=== PATIENT | male | born 1955 | race Caucasian/White ===

== ENCOUNTER 2016-09-29 17:18 | Inpatient (IN) | payer OTHER ==
[~2016-09-29] VITALS: Ht 172.7 cm; Wt 67.1 kg
[~2016-09-29 17:18] MED LIST: Aspirin PO; CARV3.122 PO; CARV6.25 PO; CLOP75TA27 PO; GABA-586 PO; INSU100I17 SQ; INSU100I27 SQ; INSU100V8 SQ; LEVO500T38 PO; METO5TAB55 PO; NICO1PAT2 TP; OXYC5TAB PO; POTA10TA17 PO; POTA10TA31 PO; SERT100T PO; SIMV40TA3 PO
[2016-09-29] MEDS: NITROGLYCERIN SUBLINGUAL 0.4 MG BOTTLE OF 25. SL PRN ×3 (17:26→17:36)
[2016-09-29] MEDS ORDERED: IPRATRPIUM/ALBUTEROL 0.5/2.5MG 3 ML NEBU. NEB ONE (17:30)
[2016-09-29] MEDS ORDERED: MORPHINE SULFATE 4 MG/ML DISP.SYRIN. IV/SQ PRN (17:30)
[2016-09-29] MEDS ORDERED: NITROGLYCERIN PREMIX 250 ML IV ONE ×2 (17:30→17:45)
[2016-09-29 17:43] LABS: BASO # 0.1 x10^3/uL (0.0-0.2); BASO % 1 % (0-3); EOS % 2 % (0-3); HEMOGLOBIN 14.2 g/dL (13.0-17.5); LYMPH # 3.8 x10^3/uL (1.0-4.8); LYMPH % 38 % (24-48); MEAN CORPUSCULAR HEMOGLOBIN 34 pg (25-35); MEAN CORPUSCULAR HGB CONC 33 g/dL (31-37); MEAN CORPUSCULAR VOLUME 102 fL (79-100); MONO % 6 % (0-9); NEUT % 53 % (31-73); PLATELET COUNT 147 x10^3/uL (140-400); RED BLOOD COUNT 4.23 x10^6/uL (4.30-5.70); WHITE BLOOD COUNT 10.1 x10^3/uL (4.0-11.0)
[2016-09-29 17:53] LABS: CALCIUM 8.7 mg/dL (8.5-10.1); CREATININE 1.1 mg/dL (0.7-1.3); GFR 68.5; MAGNESIUM 2.1 mg/dL (1.8-2.4); POTASSIUM 4.7 mmol/L (3.5-5.1)
--- NOTE | 2016-09-29 18:01 | EKG ---
[facility] [address] [place] [address] Test Date: 2016-09-29 Test Time: 17:28:52 Pat Name: NEVIN PATTON Department: Room: Gender: M Sonoscope Operator: : 1955 Requested By: Krysta JOSEPH Order Number: [id number] Reading MD: Elis Aguilera Measurements Intervals [place] Rate: 135 P: -3 MD: 132 QRS: -17 QRSD: 128 T: 97 QT: 278 QTc: 421 Interpretive Statements SINUS TACHYCARDIA LEFTWARD AXIS T ABNORMALITY IN ANTEROLATERAL LEADS INFEROLATERAL LEADS Electronically Signed On 10-02-2016 20:07:21 COTTON PICKER by Elis Aguilera
[2016-09-29 18:05] LABS: PLT ESTIMATE ADEQUATE (ADEQUATE)
--- NOTE | 2016-09-29 18:06 | PHYS DOC ---
Past Medical History Past Medical History: CAD, COPD, Diabetes-Type II, Hypertension, Stroke Additional Past Medical Histor: CHF with ICD Past Surgical History: Coronary Bypass Surgery, Pacemaker Additional Past Surgical Histo: defib, left carotid endarectomy, bilateral arterial bypass Alcohol Use: Sober Drug Use: Amphetamine, Cocaine Adult General Chief Complaint Chief Complaint: CHEST PAIN HPI HPI Patient is a 61 year old male who presents with difficulty breathing and chest tightness that started around 11 AM this morning. Symptoms are severe and constant, worsening through the day. He notes slight cough. Denies f/c, n/c, diaphoresis, orthopnea, leg pain or swelling, hemoptysis. Review of Systems Review of Systems Constitutional: Denies fever or chills [] Eyes: Denies change in visual acuity, redness, or eye pain [] HENT: Denies nasal congestion or sore throat [] Respiratory: Has cough and shortness of breath [] Cardiovascular: No additional information not addressed in HPI [] GI: Denies abdominal pain, nausea, vomiting, bloody stools or diarrhea [] : Denies dysuria or hematuria [] Musculoskeletal: Denies back pain or joint pain [] Integument: Denies rash or skin lesions [] Neurologic: Denies headache, focal weakness or sensory changes [] Endocrine: Denies polyuria or polydipsia [] Current Medications Current Medications Current Medications Medications (Trade) Dose Ordered Sig/Manjula Start Time Stop Time Status Last Admin Dose Admin Albuterol/ Ipratropium 3 ml 3 ml 1X ONCE 09/29/16 17:30 09/29/16 17:34 DC 09/29/16 17:48 3 ML Morphine Sulfate 4 mg PRN Q15MIN PRN 09/29/16 17:30 09/30/16 17:29 09/29/16 17:40 4 MG Nitroglycerin/ Dextrose (Nitroglycerin Drip) 250 ml @ 0 mls/hr 1X ONCE 09/29/16 17:45 09/29/16 17:46 DC 09/29/16 17:56 3 MLS/HR Allergies Allergies Allergies Coded Allergies Type Severity Reaction Last Updated Verified codeine Allergy Intermediate 12/15/14 Yes Physical Exam Physical Exam Constitutional: Well developed, well nourished, moderate distress, non-toxic appearance. [] HENT: Normocephalic, atraumatic, bilateral external ears normal, oropharynx moist, no oral exudates, nose normal. [] Eyes: PERRLA, EOMI. [] Neck: Normal range of motion, no tenderness, supple, no stridor. [] Cardiovascular:Heart rate regular rhythm [] Lungs & Thorax: Tachypnea, bilateral wheezing with prolonged expiratory phase, increased work of breathing. No crackles [] Abdomen: Bowel sounds normal, soft, no tenderness. [] Skin: Warm, dry, no erythema, no rash. [] Back: Normal ROM. [] Extremities: No tenderness, ROM intact, no edema, no palpable cord. [] Neurologic: Alert and oriented X 3, normal motor function, normal sensory function, no focal deficits noted. [] Psychologic: Affect normal, judgement normal, mood normal. [] Current Patient Data Vital Signs Vital Signs Date Time Temp Pulse Resp B/P Pulse Ox O2 Delivery O2 Flow Rate FiO2 09/29/16 17:40 97 NonRebreather Mask 09/29/16 17:36 138 236/131 Lab Values Laboratory Tests Test 09/29/16 17:35 White Blood Count 10.1x10^3/uL (4.0-11.0) Red Blood Count 4.23x10^6/uL (4.30-5.70) L Hemoglobin 14.2g/dL (13.0-17.5) Hematocrit 43.0% (39.0-53.0) Mean Corpuscular Volume 102fL (79-100) H Mean Corpuscular Hemoglobin 34pg (25-35) Mean Corpuscular Hemoglobin Concent 33g/dL (31-37) Red Cell Distribution Width 14.0% (11.5-14.5) Platelet Count 147x10^3/uL (140-400) Neutrophils (%) (Auto) 53% (31-73) Lymphocytes (%) (Auto) 38% (24-48) Monocytes (%) (Auto) 6% (0-9) Eosinophils (%) (Auto) 2% (0-3) Basophils (%) (Auto) 1% (0-3) Neutrophils # (Auto) 5.3x10^3uL (1.8-7.7) Lymphocytes # (Auto) 3.8x10^3/uL (1.0-4.8) Monocytes # (Auto) 0.6x10^3/uL (0.0-1.1) Eosinophils # (Auto) 0.2x10^3/uL (0.0-0.7) Basophils # (Auto) 0.1x10^3/uL (0.0-0.2) Platelet Estimate Adequate (ADEQUATE) Giant Platelets Few Sodium Level 142mmol/L (136-145) Potassium Level 4.7mmol/L (3.5-5.1) Chloride Level 105mmol/L (98-107) Carbon Dioxide Level 26mmol/L (21-32) Anion Gap 11 (6-14) Blood Urea Nitrogen 13mg/dL (8-26) Creatinine 1.1mg/dL (0.7-1.3) Estimated GFR (Cockcroft-Gault) 68.5 Glucose Level 79mg/dL (70-99) Calcium Level 8.7mg/dL (8.5-10.1) Magnesium Level 2.1mg/dL (1.8-2.4) Troponin I Quantitative 0.024ng/mL (0.000-0.055) KB-Eft-W-Type Natriuretic Peptide 75558yn/mL (0-124) H Laboratory Tests 09/29/16 17:35 Laboratory Tests 09/29/16 17:35 EKG EKG EKG as interpreted by me as sinus tachycardia, rate 135, poor quality with wandering baseline, time 1728 EKG as interpreted by me as normal sinus rhythm, rate 97, no ST-T changes, P-R 164, QTc 474, no ectopy Radiology/Procedures Radiology/Procedures Chest x-ray as interpreted by me as bilateral pulmonary edema Course & Med Decision Making Course & Med Decision Making Pertinent Labs and Imaging studies reviewed. (See chart for details) Presentation and workup significant for heart failure exacerbation mixed with COPD exacerbation. He was started on nitro drip and given duoneb and his symptoms have improved with lowering of his SBP. Work of breathing is normal now, still with some bilateral wheezing. Laboratory evaluation remarkable for elevated proBNP. Chest x-ray concerning as above. Will admit to the ICU for further monitoring. Antibiotics ordered for COPD exacerbation after discussing case with Dr. Yu, who agrees to admit. Cardiology consult placed. Celeste Disclaimer Dragon Disclaimer This electronic medical record was generated, in whole or in part, using a voice recognition dictation system. Critical Care Time Critical care time was 45 minutes exclusive of procedures. Departure Departure Impression: Primary Impression: Respiratory failure Additional Impressions: CHF exacerbation COPD exacerbation Disposition: ADMITTED INPATIENT Condition: CRITICAL Referrals: MANNY YU MD (PCP) Problem Qualifiers Primary Impression: Respiratory failure Chronicity: acute Respiratory failure complication: hypoxia Qualified Code : J96.01 - Acute respiratory failure with hypoxia Additional Impressions: CHF exacerbation Congestive heart failure type: unspecified congestive heart failure type Qualified Code: I50.9 - Heart failure, unspecified Krysta JOSEPH MD Sep 29, 2016 18:06
[2016-09-29 18:27] LABS: PROTHROMBIN TIME PATIENT 12.6 SEC (11.7-14.0)
[2016-09-29] MEDS ORDERED: PREDNISONE 20 MG TABLET PO ONE (18:30)
[2016-09-29] MEDS ORDERED: ACETAMINOPHEN 325 MG TABLET. PO PRN (18:45)
[2016-09-29] MEDS ORDERED: LEVOFLOXACIN PER PHARMACY MC PRN (18:45)
[2016-09-29] MEDS ORDERED: MORPHINE SULFATE 4 MG/ML DISP.SYRIN. IV PRN (18:45)
[2016-09-29] MEDS ORDERED: ONDANSETRON PF 4 MG/2 ML VIAL. IV PRN (18:45)
[2016-09-29 19:05] LABS: OBC FLU VALID
[2016-09-29] MEDS ORDERED: IPRATRPIUM/ALBUTEROL 0.5/2.5MG 3 ML NEBU. NEB SCH (20:00)
[2016-09-29 21:30] VITALS: BP 137/74
[2016-09-29] MEDS ORDERED: DEXTROSE 50% 25 GM / 50ML DISP.SYRIN. IV PRN (21:45)
[2016-09-29] MEDS ORDERED: FUROSEMIDE 40 MG/4 ML VIAL IVP ONE (22:00)
[2016-09-29] MEDS ORDERED: OXYCODONE IR 5 MG TABLET. PO PRN (22:00)
[2016-09-29] MEDS: INSULIN DETEMIR 300 UNITS/3 ML INSULN.PEN. SQ SCH (22:00)
[2016-09-29] MEDS: GABAPENTIN 300 MG CAPSULE. PO SCH (22:10)
[2016-09-29] MEDS: METOCLOPRAMIDE 5 MG TABLET PO SCH (22:10)
[2016-09-29] MEDS: SIMVASTATIN 40 MG TABLET. PO SCH (22:10)
[2016-09-29 23:00] VITALS: BP 130/68
--- NOTE | 2016-09-30 00:20 | ACF ---
Admission Forms Criteria COPD Clinical Indications for Admission to Inpatient Care (Place 'X' for any and all applicable criteria): Admission is indicated for ANY ONE of the following (1)(2)(3): [X]I. Acute exacerbation by high-risk comorbidity (e.g., pneumonia, dysrhythmia, heart failure, pleural effusion, pneumothorax) or severe underlying COPD (e.g., steroid dependent) [ ]II. Inpatient admission required rather than observation care (see Chronic Obstructive Pulmonary Disease: Observation Care) because of ANY ONE of the following: [ ]a) New or pre-existing signs or symptoms of COPD (eg, dyspnea or Tachypnea at rest or with minimal activity) that persist despite outpatient and observation care treatment [ ]b) New-onset hypoxemia (room air SaO2 less than 90%, PO2 less than 60 mm Hg (8.0 kPa)) that persists despite outpatient and observation care treatment [ ]c) Worsening of pre-existing hypoxemia (eg, new or increased requirement for supplemental oxygen to maintain oxygenation at baseline level) that persists despite outpatient and observation care treatment, with oxygen treatment needs performable only in acute inpatient setting [ ]d) Hypercarbia (PCO2 greater than 40 mm Hg (5.3 kPa))-induced respiratory acidosis (pH less than 7.35) that persists despite outpatient and observation care treatment [ ]e) Supplemental oxygen or respiratory treatments for over 24 hours that are performable only in acute inpatient setting [ ]f) Chest tube placement with active evacuation (e.g., suction, drainage) (5) [ ]g) Other condition, treatment or monitoring requiring inpatient admission [ ]III. Planned invasive surgical or diagnostic procedures requiring acute- care hospitalization [X]IV. Acute respiratory failure (e.g., uncompensated hypercarbia, severe hypoxemia) [ ]V. Severe comorbid condition (e.g., severe steroid myopathy, acute vertebral fracture) that has acutely worsened pulmonary function [ ]. Confusion state, lethargy, obtundation, stupor or coma Extended stay beyond goal length of stay may be needed for (31)(32): [ ]a ) Respiratory Failure. [ ]b) Severe or persisting hypoxemia or hypercarbia [ ]c) Severe or persistent dyspnea [ ]d) Comorbidities (e.g. chronic heart failure, atrial fibrillation with rapid response, pneumonia) [ ]e) Malnutrition The original [facility] content created by [facility] has been revised. The portions of the content which have been revised are identified through the use of italic text or in bold, and [facility] has neither reviewed nor approved the modified material. All other unmodified content is copyright [facility]. Please see references footnoted in the original [facility] edition 2016 Admission Criteria Met?: Yes JOHN CHIU Sep 30, 2016 00:20
[2016-09-30 03:00] VITALS: BP 125/60
[2016-09-30 05:32] LABS: BASO % 0 % (0-3); EOS % 0 % (0-3); HEMATOCRIT 37.9 % (39.0-53.0); HEMOGLOBIN 12.2 g/dL (13.0-17.5); LYMPH # 0.5 x10^3/uL (1.0-4.8); LYMPH % 7 % (24-48); MEAN CORPUSCULAR HEMOGLOBIN 33 pg (25-35); MEAN CORPUSCULAR HGB CONC 32 g/dL (31-37); MEAN CORPUSCULAR VOLUME 102 fL (79-100); MONO % 1 % (0-9); NEUT % 92 % (31-73); PLATELET COUNT 108 x10^3/uL (140-400); RED BLOOD COUNT 3.71 x10^6/uL (4.30-5.70); RED CELL DISTRIBUTION WIDTH 13.8 % (11.5-14.5)
[2016-09-30 05:52] LABS: CALCIUM 8.9 mg/dL (8.5-10.1); CREATININE 1.3 mg/dL (0.7-1.3); GFR 56.5; MAGNESIUM 1.9 mg/dL (1.8-2.4); POTASSIUM 4.2 mmol/L (3.5-5.1)
--- NOTE | 2016-09-30 06:26 | EKG ---
[facility] [address] [place] [address] Test Date: 2016-09-29 Test Time: 18:16:00 Pat Name: NEVIN PATTON Department: Room: 264 1 Gender: M Welt Maker: : 1955 Requested By: Krysta JOSEPH Order Number: [id number] Reading MD: Elis Aguilera Measurements Intervals [place] Rate: 97 P: 53 NE: 164 QRS: -30 QRSD: 130 T: 116 QT: 370 QTc: 474 Interpretive Statements SINUS RHYTHM LEFT ATRIAL ABNORMALITY ABNORMAL LEFT AXIS DEVIATION NON SPECIFIC INTRAVENTRICULAR BLOCK Electronically Signed On 10-02-2016 20:08:39 TOOLMAKER by Elis Aguilera
[2016-09-30 07:00] VITALS: BP 117/60
[2016-09-30 07:27] LABS: PLT ESTIMATE ADEQUATE (ADEQUATE)
--- NOTE | 2016-09-30 07:44 | RAD ---
EXAM: Chest one view. HISTORY: Dyspnea, chest pain. COMPARISON: 05/20/2016. FINDINGS: A frontal view of the chest is obtained. A left-sided pacemaker has its leads in the right atrium and right ventricle. There are changes of coronary artery bypass grafting. There are mild diffuse interstitial infiltrates consistent with pulmonary edema. Trace pleural effusions are noted. There is no pneumothorax. The heart is mildly enlarged. There appears to be a vascular stent in the left subclavian or left common carotid artery. There is a chronic fracture of the left distal clavicle. IMPRESSION: 1. Mild pulmonary edema. Mild cardiomegaly.
[2016-09-30] MEDS ORDERED: FUROSEMIDE 40 MG/4 ML VIAL IVP ONE (08:00)
[2016-09-30] MEDS: INSULIN ASPART 300 UNITS/3 ML INSULN.PEN SQ SCH ×3 (08:00→17:00)
[2016-09-30] MEDS: IPRATRPIUM/ALBUTEROL 0.5/2.5MG 3 ML NEBU. NEB SCH ×4 (08:04→20:11)
[2016-09-30] MEDS: CLOPIDOGREL BISULFATE 75 MG TABLET PO SCH (08:17)
[2016-09-30] MEDS: SERTRALINE 50 MG TABLET. PO SCH (08:18)
[2016-09-30] MEDS: METOCLOPRAMIDE 5 MG TABLET PO SCH ×3 (08:19→21:03)
[2016-09-30] MEDS: ISOSORBIDE MONONITRATE ER 30 MG TAB.ER.24H PO SCH (08:19)
[2016-09-30] MEDS: ASPIRIN 81 MG TAB.CHEW PO SCH (08:19)
[2016-09-30] MEDS: CARVEDILOL 3.125 MG TABLET PO SCH ×2 (08:19→17:18)
[2016-09-30] MEDS: PANTOPRAZOLE 40 MG TABLET. PO SCH (08:20)
--- NOTE | 2016-09-30 08:24 | PDOC1 ---
SANDRA OSBORNE [employer]EL[employer] 09/30/16 0824: HISTORY AND PHYSICAL Chief Complaint Chief Complaint This 61 year old male has been admitted with a chief complaint of acute on chronic systolic CHF. He reports onset of difficulty getting air in at 11AM yesterday. He took 2 NTG subling through the day and additional Imdur without relief. In the early evening he repeated the NTG without improvement in his symptoms and drove to [facility] ED for evaluation. He did not have chest pain or nausea but was experiencing rapid HR. Upon arrival to the ED his BP was 204/ 129. EKG ST initially with repeat EKG SR without acute changes. His troponin was mildly elevated at 0.024 r/t increased demand cardiovascular. He was given nebulizer treatment and NTG infusion initiated. Prednisone 50mg along with Levaquin 750mg IV given for suspected AECOPD and suspected acute bronchitis. He is not having productive cough and his respiratory symptoms have resolved. He has a h/o flash pulmonary edema in May 2016 that was treated with Lasix 40mg IV daily. After several days his BP dropped to 70s systolic and the Lasix stopped. There has been no reoccurrence until this episode yesterday. His diet includes fast food and pizza and this may have contributed to the flash pulmonary edema. He is admitted to the CVICU. Problem List Problems Medical Problems: (1) CHF exacerbation Status: Acute (2) COPD exacerbation Status: Acute (3) Respiratory failure Status: Acute Past Medical History Cardiovascular: CAD (h/o ME x 2, stent prior to CABG RCA, and stent post CABG post deescending. PTCA stent LC x 2 ), CHF (systolic 20% with AICD ), HTN, ME, Hyperlipidemia, Other (PAD bilateral with h/o stents and revascularization at , h/o SVC L stenosis with stent placement x2 and PTCA, ) Pulmonary: COPD (tobacco ) CENTRAL NERVOUS SYSTEM: Dementia (mild short and electronic equipment maint tech memory affected), Seizure (h/o with hypoglycemia ) Heme/Onc: Anemia NOS Psych: Depression Musculoskeletal: low back pain (chronic intermittent), Osteoarthritis Renal/: Chronic renal insuff (CKD II ) Endocrine: Diabetes (Type II senior living insulin with neuropathy ) Past Surgical History PSH Stent PTCA L SCV x 2 separate occasions, B CEA separate occasions. Past Surgical History: Pacemaker, Appendectomy, CABG Past Family History PFH Mom CAD, CVA, HTN, hyperlipidemia, CHF. Father end stage lung disease from wounds received in [place]. Sister AML, remission. 2 of 3 brothers CAD with sudden x1 oldest brother, CVA, post CABG next to oldest brother. 3rd brother alive and well. Past Social History PSH lives with sister, over 45 year pack h/o tobacco, remote h/o ETOH and illicit drugs. Review of Symptoms Review of Symptoms A 14 point ROS was completed with the following noted as positive: Other systems reviewed and negative. Medications Reviewed and reconciled Allergy Allergies Coded Allergies Type Severity Reaction Last Updated Verified codeine Allergy Intermediate 12/15/14 Yes Physical Exam Physical Exam General appearance - alert, ill appearing, and in no distress Mental Status - alert, oriented to person, place, and time, affect appropriate to mood Head - normal Chest - crackles R base Heart - S1 and S2 normal Abdomen - soft, nontender, nondistended, BS+ Neurological - no acute focal neurological deficit noted Musculoskeletal - L shoulder pain, worse with ROM Extremities - no pedal edema Skin - warm and dry VTE Prophylaxis Ordered VTE Prophylaxis Devices: Yes VTE Pharmacological Prophylaxi: No Assessment Labs Laboratory Tests Test 09/29/16 17:35 09/29/16 18:00 09/29/16 18:30 09/29/16 21:46 White Blood Count 10.1x10^3/uL (4.0-11.0) Red Blood Count 4.23x10^6/uL (4.30-5.70) Hemoglobin 14.2g/dL (13.0-17.5) Hematocrit 43.0% (39.0-53.0) Mean Corpuscular Volume 102fL (79-100) Mean Corpuscular Hemoglobin 34pg (25-35) Mean Corpuscular Hemoglobin Concent 33g/dL (31-37) Red Cell Distribution Width 14.0% (11.5-14.5) Platelet Count 147x10^3/uL (140-400) Neutrophils (%) (Auto) 53% (31-73) Lymphocytes (%) (Auto) 38% (24-48) Monocytes (%) (Auto) 6% (0-9) Eosinophils (%) (Auto) 2% (0-3) Basophils (%) (Auto) 1% (0-3) Neutrophils # (Auto) 5.3x10^3uL (1.8-7.7) Lymphocytes # (Auto) 3.8x10^3/uL (1.0-4.8) Monocytes # (Auto) 0.6x10^3/uL (0.0-1.1) Eosinophils # (Auto) 0.2x10^3/uL (0.0-0.7) Basophils # (Auto) 0.1x10^3/uL (0.0-0.2) Platelet Estimate Adequate (ADEQUATE) Giant Platelets Few Sodium Level 142mmol/L (136-145) Potassium Level 4.7mmol/L (3.5-5.1) Chloride Level 105mmol/L (98-107) Carbon Dioxide Level 26mmol/L (21-32) Anion Gap 11 (6-14) Blood Urea Nitrogen 13mg/dL (8-26) Creatinine 1.1mg/dL (0.7-1.3) Estimated GFR (Cockcroft-Gault) 68.5 Glucose Level 79mg/dL (70-99) Calcium Level 8.7mg/dL (8.5-10.1) Magnesium Level 2.1mg/dL (1.8-2.4) Troponin I Quantitative 0.024ng/mL (0.000-0.055) HF-Jug-H-Type Natriuretic Peptide 07521pa/mL (0-124) Prothrombin Time 12.6SEC (11.7-14.0) Prothromb Time International Ratio 1.0 (0.8-1.1) Influenza Type A Antigen Negative (NEGATIVE) Influenza Type B Antigen Negative (NEGATIVE) Glucose (Fingerstick) 50mg/dL (70-99) Test 09/30/16 05:00 White Blood Count 7.0x10^3/uL (4.0-11.0) Red Blood Count 3.71x10^6/uL (4.30-5.70) Hemoglobin 12.2g/dL (13.0-17.5) Hematocrit 37.9% (39.0-53.0) Mean Corpuscular Volume 102fL (79-100) Mean Corpuscular Hemoglobin 33pg (25-35) Mean Corpuscular Hemoglobin Concent 32g/dL (31-37) Red Cell Distribution Width 13.8% (11.5-14.5) Platelet Count 108x10^3/uL (140-400) Neutrophils (%) (Auto) 92% (31-73) Lymphocytes (%) (Auto) 7% (24-48) Monocytes (%) (Auto) 1% (0-9) Eosinophils (%) (Auto) 0% (0-3) Basophils (%) (Auto) 0% (0-3) Neutrophils # (Auto) 6.5x10^3uL (1.8-7.7) Lymphocytes # (Auto) 0.5x10^3/uL (1.0-4.8) Monocytes # (Auto) 0.1x10^3/uL (0.0-1.1) Eosinophils # (Auto) 0.0x10^3/uL (0.0-0.7) Basophils # (Auto) 0.0x10^3/uL (0.0-0.2) Segmented Neutrophils % 95% (35-66) Lymphocytes % 5% (24-48) Platelet Estimate Adequate (ADEQUATE) Large Platelets Present Sodium Level 141mmol/L (136-145) Potassium Level 4.2mmol/L (3.5-5.1) Chloride Level 103mmol/L (98-107) Carbon Dioxide Level 31mmol/L (21-32) Anion Gap 7 (6-14) Blood Urea Nitrogen 13mg/dL (8-26) Creatinine 1.3mg/dL (0.7-1.3) Estimated GFR (Cockcroft-Gault) 56.5 Glucose Level 54mg/dL (70-99) Calcium Level 8.9mg/dL (8.5-10.1) Magnesium Level 1.9mg/dL (1.8-2.4) Laboratory Tests Test 09/29/16 17:35 09/29/16 18:00 09/29/16 18:30 09/29/16 21:46 White Blood Count 10.1x10^3/uL (4.0-11.0) Red Blood Count 4.23x10^6/uL (4.30-5.70) Hemoglobin 14.2g/dL (13.0-17.5) Hematocrit 43.0% (39.0-53.0) Mean Corpuscular Volume 102fL (79-100) Mean Corpuscular Hemoglobin 34pg (25-35) Mean Corpuscular Hemoglobin Concent 33g/dL (31-37) Red Cell Distribution Width 14.0% (11.5-14.5) Platelet Count 147x10^3/uL (140-400) Neutrophils (%) (Auto) 53% (31-73) Lymphocytes (%) (Auto) 38% (24-48) Monocytes (%) (Auto) 6% (0-9) Eosinophils (%) (Auto) 2% (0-3) Basophils (%) (Auto) 1% (0-3) Neutrophils # (Auto) 5.3x10^3uL (1.8-7.7) Lymphocytes # (Auto) 3.8x10^3/uL (1.0-4.8) Monocytes # (Auto) 0.6x10^3/uL (0.0-1.1) Eosinophils # (Auto) 0.2x10^3/uL (0.0-0.7) Basophils # (Auto) 0.1x10^3/uL (0.0-0.2) Platelet Estimate Adequate (ADEQUATE) Giant Platelets Few Sodium Level 142mmol/L (136-145) Potassium Level 4.7mmol/L (3.5-5.1) Chloride Level 105mmol/L (98-107) Carbon Dioxide Level 26mmol/L (21-32) Anion Gap 11 (6-14) Blood Urea Nitrogen 13mg/dL (8-26) Creatinine 1.1mg/dL (0.7-1.3) Estimated GFR (Cockcroft-Gault) 68.5 Glucose Level 79mg/dL (70-99) Calcium Level 8.7mg/dL (8.5-10.1) Magnesium Level 2.1mg/dL (1.8-2.4) Troponin I Quantitative 0.024ng/mL (0.000-0.055) VI-Bed-M-Type Natriuretic Peptide 34014zt/mL (0-124) Prothrombin Time 12.6SEC (11.7-14.0) Prothromb Time International Ratio 1.0 (0.8-1.1) Influenza Type A Antigen Negative (NEGATIVE) Influenza Type B Antigen Negative (NEGATIVE) Glucose (Fingerstick) 50mg/dL (70-99) Test 09/30/16 05:00 White Blood Count 7.0x10^3/uL (4.0-11.0) Red Blood Count 3.71x10^6/uL (4.30-5.70) Hemoglobin 12.2g/dL (13.0-17.5) Hematocrit 37.9% (39.0-53.0) Mean Corpuscular Volume 102fL (79-100) Mean Corpuscular Hemoglobin 33pg (25-35) Mean Corpuscular Hemoglobin Concent 32g/dL (31-37) Red Cell Distribution Width 13.8% (11.5-14.5) Platelet Count 108x10^3/uL (140-400) Neutrophils (%) (Auto) 92% (31-73) Lymphocytes (%) (Auto) 7% (24-48) Monocytes (%) (Auto) 1% (0-9) Eosinophils (%) (Auto) 0% (0-3) Basophils (%) (Auto) 0% (0-3) Neutrophils # (Auto) 6.5x10^3uL (1.8-7.7) Lymphocytes # (Auto) 0.5x10^3/uL (1.0-4.8) Monocytes # (Auto) 0.1x10^3/uL (0.0-1.1) Eosinophils # (Auto) 0.0x10^3/uL (0.0-0.7) Basophils # (Auto) 0.0x10^3/uL (0.0-0.2) Segmented Neutrophils % 95% (35-66) Lymphocytes % 5% (24-48) Platelet Estimate Adequate (ADEQUATE) Large Platelets Present Sodium Level 141mmol/L (136-145) Potassium Level 4.2mmol/L (3.5-5.1) Chloride Level 103mmol/L (98-107) Carbon Dioxide Level 31mmol/L (21-32) Anion Gap 7 (6-14) Blood Urea Nitrogen 13mg/dL (8-26) Creatinine 1.3mg/dL (0.7-1.3) Estimated GFR (Cockcroft-Gault) 56.5 Glucose Level 54mg/dL (70-99) Calcium Level 8.9mg/dL (8.5-10.1) Magnesium Level 1.9mg/dL (1.8-2.4) Plan Plan IMPRESSION: 1. ICM with acute on chronic systolic CHF EF 20% 2. mild exacerbation COPD 3. DM II with neuropathy, senior living use insulin, hypoglycemia 4. malignant HTN 5. CAD with h/o ME x 2, stent pre and post CABG, additional stent x 2 occasions 6. PAD with h/o stents 7. L SCV stenosis with h/o stent x2 8. CKD II 9. hyperlipidemia 10. h/o seizures with hypoglycemia 11. anemia CD 12. chronic tobacco abuse PLAN: a/c CHF Lasix 40mg IV after admit, repeat this AM 09/30 IO daily wt cardiology consult gentle diuresis, becomes hypotensive with daily dose-may need Lasix 40mg MWF and prn. HTN malignant improved with respiratory failure treatment mild EXCOPD nebulizer treatment Prednisone 50mg x 1 ED monitor, no further steroids ?AB -symptoms not support, DC DM II does not follow ADA diet, change to regular cardiac diet monitor hypoglycemia-h/o seizures in past FSBS/SSI Home insulin L shoulder pain consult Dr. Cameron h/o L SCV stent x2 and PTCA in past, source of pain? DVT/GI prophylaxis SCD/CHERYLE PPI For more details regarding further plans, please refer to the orders. MANNY YU MD 09/30/16 0931: HISTORY AND PHYSICAL Plan Plan The patient was seen and examined by me. Chart reviewed and plan of care formulated. Discussed with, reviewed and agree with SENIOR LOSS CONTROL SPECIALIST's notes, plan of care and orders with modifications as necessary. For more details regarding further plans, please refer to the orders. SANDRA OSBORNE APRN Sep 30, 2016 08:24 MANNY YU MD Sep 30, 2016 09:31
[2016-09-30] MEDS: NICOTINE 14MG PATCH. TD SCH (09:00)
--- NOTE | 2016-09-30 10:18 | PDOC2 ---
CARDIAC CONSULT DATE OF CONSULT Date of Consult DATE: 09/30/16 TIME: 10:07 REASON FOR CONSULT Reason for Consult: CHF exacerbation REFERRING PHYSICIAN Referring Physician: White SOURCE Source: Chart review, Patient HISTORY OF PRESENT ILLNESS HISTORY OF PRESENT ILLNESS This is a pleasant 61 yo male admitted for complains of SOA and chest pain. Reports that he was doing well in the last week till yesterday morning. He felt his SOA increasing which then followed by midsternal chest tightness. No nausea, palpitations. He is known for significant cardiac disease with recent LHC noted with no new coronary obstruction. He has been compliant with his medications but unfortunately he continues to drink significant amounts of soda with caffeine and 1pk/day tobacco. He was diuresed overnight with 2 doses of lasix in which currently his symptoms have improved significantly. lasix therapy has been an intermittent medications for him due to his erratic BP which sometimes become significantly low thus no ACEi/ARB as well. Currently he is CP free and no SOA. PAST MEDICAL HISTORY Past Medical History Cardiovascular: CAD (Last CC 08/13/10 LM subtotally occluded distally, LAD 100 % occluded proximally, LCX 100% occluded proximally, RCA previous stent prox and mid segment which shows 100% occluded in mid area, MARTINEZ graft to LAD patent , SVG first diagonal branch L OM patent, SVG to post descending art previous stent distal part of graft, 30-40% in stent restenosis but excellent flow distally, bilateral CEA ), CHF (ICM Class II-III, EF 10-15% with AICD ), HTN, Hyperlipidemia, Other (L SVC stenosis with PTCA and stent X 2 separate occasions , ) Pulmonary: COPD CENTRAL NERVOUS SYSTEM: Dementia, Periperal neuropathy, Other GI: Diverticulosis (h/o multiple hypoglycemic events ), GERD Heme/Onc: Anemia NOS Psych: Depression (with mood disorder ) Musculoskeletal: Osteoarthritis Renal/: Chronic renal insuff (CKD II ) Endocrine: Diabetes (with neuropathy ) PAST SURGICAL HISTORY Past Surgical History Pacemaker (AICD ), Appendectomy, CABG,, Other (Stent RCA prior to CABG, Stent post descending post CABG, PTCA stent L SCV x2 (separate occasions), CEA x 2 ( separate occasions) with bruit present 08/23/10, ) FAMILY HISTORY Family History Mother: CAD, DM, CVA, HTN, Hyperlipidemia, CHF Dad: ES lung disease from wounds inflicted during [place] War 08/08 sister: leukemia, allergies. 08/08 brother x 2 with CAD, oldest brother massive CO, . Next to the oldest brother CAD CVA during post op from CABG SOCIAL HISTORY Social History Smoke: 1 packs per day ALCOHOL: none Drugs: None Lives: with Family Domestic Violence: Neg CURRENT MEDICATIONS CURRENT MEDICATIONS Current Medications Medications (Trade) Dose Ordered Sig/Manjula Route PRN Reason Start Time Stop Time Status Last Admin Dose Admin Nitroglycerin/ Dextrose (Nitroglycerin Drip) 250 ml @ 3 mls/hr 1X ONCE IV 09/29/16 17:30 09/29/16 18:01 DC 09/29/16 17:41 Morphine Sulfate 4 mg PRN Q15MIN PRN IV/SQ PAIN GREATER THAN 3/10 09/29/16 17:30 09/30/16 17:29 09/29/16 17:40 Albuterol/ Ipratropium 3 ml 3 ml 1X ONCE NEB 09/29/16 17:30 09/29/16 17:34 DC 09/29/16 17:48 Nitroglycerin/ Dextrose (Nitroglycerin Drip) 250 ml @ 0 mls/hr 1X ONCE IV 09/29/16 17:45 09/29/16 17:46 DC 09/29/16 17:56 Nitroglycerin (Nitrostat) 0.4 mg PRN Q5MIN PRN SL CHEST PAIN 09/29/16 18:00 09/29/16 17:36 Prednisone (Prednisone) 60 mg 1X ONCE PO 09/29/16 18:30 09/29/16 18:31 DC 09/29/16 18:29 Albuterol/ Ipratropium 3 ml 3 ml RTQID NEB 09/29/16 20:00 09/30/16 08:00 DC 09/29/16 21:43 Levofloxacin/ Dextrose (LEVAQUIN 750mg PREMIX) 150 ml @ 100 mls/hr Q24H IV 09/29/16 19:00 09/30/16 09:48 DC 09/29/16 19:56 Furosemide (Lasix) 40 mg 1X ONCE IVP 09/29/16 22:00 09/29/16 22:01 DC 09/29/16 22:10 Pantoprazole Sodium (Protonix) 40 mg DAILYAC PO 09/30/16 07:30 09/30/16 08:20 Dextrose 12.5 gm PRN Q15MIN PRN IV SEE COMMENTS 09/29/16 21:45 09/30/16 06:14 Carvedilol (Coreg) 6.25 mg BIDWMEALS PO 09/30/16 08:00 09/30/16 08:19 Clopidogrel Bisulfate (Plavix) 75 mg DAILY PO 09/30/16 09:00 09/30/16 08:17 Gabapentin (Neurontin) 300 mg QHS PO 09/29/16 22:15 09/29/16 22:10 Metoclopramide HCl (Reglan) 5 mg TID PO 09/29/16 22:15 09/30/16 08:19 Simvastatin (Zocor) 40 mg HS PO 09/29/16 22:15 09/29/16 22:10 Sertraline HCl (Zoloft) 100 mg DAILY PO ANTI-DEPRESSANT 09/30/16 09:00 09/30/16 08:18 Aspirin (Children'S Aspirin) 81 mg DAILYWBKFT PO 09/30/16 08:00 09/30/16 08:19 Isosorbide Mononitrate (Imdur) 30 mg DAILY PO 09/30/16 09:00 09/30/16 08:19 Albuterol/ Ipratropium (Duoneb) 3 ml RTQID NEB 09/30/16 08:00 09/30/16 08:04 Furosemide (Lasix) 40 mg 1X ONCE IVP 09/30/16 08:00 09/30/16 08:01 DC 09/30/16 08:24 ALLERGIES ALLERGIES: Coded Allergies: codeine (Verified Allergy, Intermediate, 12/15/14) migraines ROS Review of System 14 point ROS evaluated with pertinent positives noted per HPI PHYSICAL EXAM General: Alert, Oriented X3, Cooperative, No acute distress HEENT: Atraumatic, Mucous membr. moist/pink Lungs: Other (bibasilar crackles) Heart: Regular rate (SR, no significant rhtyhm ectopies), Normal S1, Normal S2 , Other (3/6 systolic murmur to LLS border) Extremities: No cyanosis, Other (trace LE edema) Skin: No breakdown Neuro: Normal speech, Sensation intact Psych/Mental Status: Mental status NL, Mood NL MUSCULOSKELETAL: Osteoarthritic changes both hands VITALS VITALS Vital Signs Date Time Temp Pulse Resp B/P Pulse Ox O2 Delivery O2 Flow Rate FiO2 09/30/16 08:19 68 117/60 09/30/16 08:05 Nasal Cannula 3.5 09/30/16 03:00 98.3 16 96 98.3 LABS Lab: Laboratory Tests Test 09/29/16 17:35 09/29/16 18:00 09/29/16 18:30 09/29/16 21:46 White Blood Count 10.1x10^3/uL (4.0-11.0) Red Blood Count 4.23x10^6/uL (4.30-5.70) Hemoglobin 14.2g/dL (13.0-17.5) Hematocrit 43.0% (39.0-53.0) Mean Corpuscular Volume 102fL (79-100) Mean Corpuscular Hemoglobin 34pg (25-35) Mean Corpuscular Hemoglobin Concent 33g/dL (31-37) Red Cell Distribution Width 14.0% (11.5-14.5) Platelet Count 147x10^3/uL (140-400) Neutrophils (%) (Auto) 53% (31-73) Lymphocytes (%) (Auto) 38% (24-48) Monocytes (%) (Auto) 6% (0-9) Eosinophils (%) (Auto) 2% (0-3) Basophils (%) (Auto) 1% (0-3) Neutrophils # (Auto) 5.3x10^3uL (1.8-7.7) Lymphocytes # (Auto) 3.8x10^3/uL (1.0-4.8) Monocytes # (Auto) 0.6x10^3/uL (0.0-1.1) Eosinophils # (Auto) 0.2x10^3/uL (0.0-0.7) Basophils # (Auto) 0.1x10^3/uL (0.0-0.2) Platelet Estimate Adequate (ADEQUATE) Giant Platelets Few Sodium Level 142mmol/L (136-145) Potassium Level 4.7mmol/L (3.5-5.1) Chloride Level 105mmol/L (98-107) Carbon Dioxide Level 26mmol/L (21-32) Anion Gap 11 (6-14) Blood Urea Nitrogen 13mg/dL (8-26) Creatinine 1.1mg/dL (0.7-1.3) Estimated GFR (Cockcroft-Gault) 68.5 Glucose Level 79mg/dL (70-99) Calcium Level 8.7mg/dL (8.5-10.1) Magnesium Level 2.1mg/dL (1.8-2.4) Troponin I Quantitative 0.024ng/mL (0.000-0.055) DZ-Hgr-G-Type Natriuretic Peptide 23689vj/mL (0-124) Prothrombin Time 12.6SEC (11.7-14.0) Prothromb Time International Ratio 1.0 (0.8-1.1) Influenza Type A Antigen Negative (NEGATIVE) Influenza Type B Antigen Negative (NEGATIVE) Glucose (Fingerstick) 50mg/dL (70-99) Test 09/30/16 05:00 09/30/16 08:16 White Blood Count 7.0x10^3/uL (4.0-11.0) Red Blood Count 3.71x10^6/uL (4.30-5.70) Hemoglobin 12.2g/dL (13.0-17.5) Hematocrit 37.9% (39.0-53.0) Mean Corpuscular Volume 102fL (79-100) Mean Corpuscular Hemoglobin 33pg (25-35) Mean Corpuscular Hemoglobin Concent 32g/dL (31-37) Red Cell Distribution Width 13.8% (11.5-14.5) Platelet Count 108x10^3/uL (140-400) Neutrophils (%) (Auto) 92% (31-73) Lymphocytes (%) (Auto) 7% (24-48) Monocytes (%) (Auto) 1% (0-9) Eosinophils (%) (Auto) 0% (0-3) Basophils (%) (Auto) 0% (0-3) Neutrophils # (Auto) 6.5x10^3uL (1.8-7.7) Lymphocytes # (Auto) 0.5x10^3/uL (1.0-4.8) Monocytes # (Auto) 0.1x10^3/uL (0.0-1.1) Eosinophils # (Auto) 0.0x10^3/uL (0.0-0.7) Basophils # (Auto) 0.0x10^3/uL (0.0-0.2) Segmented Neutrophils % 95% (35-66) Lymphocytes % 5% (24-48) Platelet Estimate Adequate (ADEQUATE) Large Platelets Present Sodium Level 141mmol/L (136-145) Potassium Level 4.2mmol/L (3.5-5.1) Chloride Level 103mmol/L (98-107) Carbon Dioxide Level 31mmol/L (21-32) Anion Gap 7 (6-14) Blood Urea Nitrogen 13mg/dL (8-26) Creatinine 1.3mg/dL (0.7-1.3) Estimated GFR (Cockcroft-Gault) 56.5 Glucose Level 54mg/dL (70-99) Calcium Level 8.9mg/dL (8.5-10.1) Magnesium Level 1.9mg/dL (1.8-2.4) Glucose (Fingerstick) 98mg/dL (70-99) ECHOCARDIOGRAM ECHOCARDIOGRAM <Conclusion> The Left Ventricle is borderline dilated. Left ventricle systolic function is severely impaired. The Ejection Fraction is less than 20%. There is global hypokinesis of the left ventricle. There is a device lead in the right ventricle. There is no significant aortic valvular stenosis. Doppler and Color Flow revealed no significant aortic regurgitation. Doppler and Color Flow revealed mild mitral regurgitation. Doppler and Color Flow revealed mild tricuspid regurgitation. The PA pressure was estimated at 33 mmHg. DATE: 05/19/16 1505 HEART CATH HEART CATH Findings. Patent saphenous vein graft to the diagonal and obtuse marginal system. Collateral flow to the right coronary artery. Patent MARTINEZ graft to the LAD. 25% stenosis of the previously placed stent in the proximal left subclavian artery. <Conclusion> Continue patency of the patient's 2 remaining grafts as above. DATE: 05/22/16 1234 ASSESSMENT/PLAN ASSESSMENT/PLAN 1. Acute on chronic systolic CHF: suspect induced by uncontrolled HTN, oral hydration overload and likely hypoglycemic episodes. 2. CAD: CABG and stent in the past. Recent LHC with patency to grafts/stent 3. ICM: EF recent 20%. With [employer] AICD 4. Malignant HTN: not on ACEi/ARB likely from prior hypotensive episodes. 5. DM1 6. HLP 7. Peripheral vascular disease: stable 8. Continued Tobaccoism Recommendations 1. Continue with diuretic therapy, Will convert to po lasix tomorrow. 2. Would recommend routine 20 mg po lasix daily when discharge. Advise daily weight that would further fluid overload monitoring and determine need for extra diuretic therapy 3. Daily BP monitoring, avoid tight BG control. 4. Interrogate device and note optivol. 5. Continue with secondary prevention 6. Home health specializing on CHF would be an option. 7. Will decrease coreg for now, continue with DAPT. 8. Encourage to decrease soda consumption, not quite ready to give up tobacco. 9. Caution with morphine use. 10. BMP and Mg in am. Problems: KARYN GARCIA APRN Sep 30, 2016 10:18
[2016-09-30 11:00] VITALS: BP 94/47
[2016-09-30 15:00] VITALS: BP 104/53
[2016-09-30] MEDS ORDERED: MORPHINE SULFATE 4 MG/ML DISP.SYRIN. IV PRN (18:30)
[2016-09-30] MEDS ORDERED: hydrALAZINE 20 MG/ML VIAL. IVP PRN (18:30)
[2016-09-30 19:33] VITALS: BP 112/54
[2016-09-30] MEDS: GABAPENTIN 300 MG CAPSULE. PO SCH (21:03)
[2016-09-30] MEDS: SIMVASTATIN 40 MG TABLET. PO SCH (21:03)
[2016-09-30] MEDS: INSULIN DETEMIR 300 UNITS/3 ML INSULN.PEN. SQ SCH (21:06)
[2016-09-30 22:36] VITALS: BP 101/47
[2016-10-01 03:10] VITALS: BP 142/76
[2016-10-01 06:15] LABS: BASO % 1 % (0-3); EOS % 0 % (0-3); HEMATOCRIT 36.8 % (39.0-53.0); HEMOGLOBIN 12.1 g/dL (13.0-17.5); LYMPH # 1.9 x10^3/uL (1.0-4.8); LYMPH % 32 % (24-48); MEAN CORPUSCULAR HEMOGLOBIN 33 pg (25-35); MEAN CORPUSCULAR HGB CONC 33 g/dL (31-37); MEAN CORPUSCULAR VOLUME 99 fL (79-100); MONO % 8 % (0-9); NEUT % 60 % (31-73); PLATELET COUNT 105 x10^3/uL (140-400); RED CELL DISTRIBUTION WIDTH 13.7 % (11.5-14.5); WHITE BLOOD COUNT 6.1 x10^3/uL (4.0-11.0)
[2016-10-01 06:21] LABS: ALBUMIN 2.8 g/dL (3.4-5.0); ALBUMIN/GLOBULIN RATIO 0.7 (1.0-1.7); CALCIUM 8.7 mg/dL (8.5-10.1); CREATININE 1.3 mg/dL (0.7-1.3); GFR 56.5; MAGNESIUM 1.9 mg/dL (1.8-2.4); POTASSIUM 3.9 mmol/L (3.5-5.1); TOTAL BILIRUBIN 0.5 mg/dL (0.2-1.0); TOTAL PROTEIN 6.8 g/dL (6.4-8.2)
[2016-10-01] MEDS: IPRATRPIUM/ALBUTEROL 0.5/2.5MG 3 ML NEBU. NEB SCH ×2 (07:24→11:17)
--- NOTE | 2016-10-01 07:25 | PDOC3 ---
IM DISCHARGE & PROGRESS NOTES Date of Admission Date of Admission Date of Admission: Sep 29, 2016 at 17:45 Date of Discharge Date of Discharge 10/01/16 Primary Diagnosis Primary Diagnosis 1. ICM with acute on chronic systolic CHF EF 20% 2. mild exacerbation COPD 3. DM II with neuropathy, prison use insulin, hypoglycemia POA followed by steroid induced hyperglycemia 4. malignant HTN 5. CAD with h/o CO x 2, stent pre and post CABG, additional stent x 2 occasions 6. PAD with h/o stents 7. L SCV stenosis with h/o stent x2 8. CKD II 9. hyperlipidemia 10. h/o seizures with hypoglycemia 11. anemia CD 12. chronic tobacco abuse Consults Consults Rober Bethea MD Procedures Procedures None Labs Labs Laboratory Tests Test 09/29/16 17:35 09/29/16 18:00 09/29/16 18:30 09/29/16 21:46 White Blood Count 10.1x10^3/uL (4.0-11.0) Red Blood Count 4.23x10^6/uL (4.30-5.70) Hemoglobin 14.2g/dL (13.0-17.5) Hematocrit 43.0% (39.0-53.0) Mean Corpuscular Volume 102fL (79-100) Mean Corpuscular Hemoglobin 34pg (25-35) Mean Corpuscular Hemoglobin Concent 33g/dL (31-37) Red Cell Distribution Width 14.0% (11.5-14.5) Platelet Count 147x10^3/uL (140-400) Neutrophils (%) (Auto) 53% (31-73) Lymphocytes (%) (Auto) 38% (24-48) Monocytes (%) (Auto) 6% (0-9) Eosinophils (%) (Auto) 2% (0-3) Basophils (%) (Auto) 1% (0-3) Neutrophils # (Auto) 5.3x10^3uL (1.8-7.7) Lymphocytes # (Auto) 3.8x10^3/uL (1.0-4.8) Monocytes # (Auto) 0.6x10^3/uL (0.0-1.1) Eosinophils # (Auto) 0.2x10^3/uL (0.0-0.7) Basophils # (Auto) 0.1x10^3/uL (0.0-0.2) Platelet Estimate Adequate (ADEQUATE) Giant Platelets Few Sodium Level 142mmol/L (136-145) Potassium Level 4.7mmol/L (3.5-5.1) Chloride Level 105mmol/L (98-107) Carbon Dioxide Level 26mmol/L (21-32) Anion Gap 11 (6-14) Blood Urea Nitrogen 13mg/dL (8-26) Creatinine 1.1mg/dL (0.7-1.3) Estimated GFR (Cockcroft-Gault) 68.5 Glucose Level 79mg/dL (70-99) Calcium Level 8.7mg/dL (8.5-10.1) Magnesium Level 2.1mg/dL (1.8-2.4) Troponin I Quantitative 0.024ng/mL (0.000-0.055) VH-Fbd-A-Type Natriuretic Peptide 99954if/mL (0-124) Prothrombin Time 12.6SEC (11.7-14.0) Prothromb Time International Ratio 1.0 (0.8-1.1) Influenza Type A Antigen Negative (NEGATIVE) Influenza Type B Antigen Negative (NEGATIVE) Glucose (Fingerstick) 50mg/dL (70-99) Test 09/30/16 05:00 09/30/16 08:16 09/30/16 12:00 09/30/16 17:07 White Blood Count 7.0x10^3/uL (4.0-11.0) Red Blood Count 3.71x10^6/uL (4.30-5.70) Hemoglobin 12.2g/dL (13.0-17.5) Hematocrit 37.9% (39.0-53.0) Mean Corpuscular Volume 102fL (79-100) Mean Corpuscular Hemoglobin 33pg (25-35) Mean Corpuscular Hemoglobin Concent 32g/dL (31-37) Red Cell Distribution Width 13.8% (11.5-14.5) Platelet Count 108x10^3/uL (140-400) Neutrophils (%) (Auto) 92% (31-73) Lymphocytes (%) (Auto) 7% (24-48) Monocytes (%) (Auto) 1% (0-9) Eosinophils (%) (Auto) 0% (0-3) Basophils (%) (Auto) 0% (0-3) Neutrophils # (Auto) 6.5x10^3uL (1.8-7.7) Lymphocytes # (Auto) 0.5x10^3/uL (1.0-4.8) Monocytes # (Auto) 0.1x10^3/uL (0.0-1.1) Eosinophils # (Auto) 0.0x10^3/uL (0.0-0.7) Basophils # (Auto) 0.0x10^3/uL (0.0-0.2) Segmented Neutrophils % 95% (35-66) Lymphocytes % 5% (24-48) Platelet Estimate Adequate (ADEQUATE) Large Platelets Present Sodium Level 141mmol/L (136-145) Potassium Level 4.2mmol/L (3.5-5.1) Chloride Level 103mmol/L (98-107) Carbon Dioxide Level 31mmol/L (21-32) Anion Gap 7 (6-14) Blood Urea Nitrogen 13mg/dL (8-26) Creatinine 1.3mg/dL (0.7-1.3) Estimated GFR (Cockcroft-Gault) 56.5 Glucose Level 54mg/dL (70-99) Calcium Level 8.9mg/dL (8.5-10.1) Magnesium Level 1.9mg/dL (1.8-2.4) Glucose (Fingerstick) 98mg/dL (70-99) 103mg/dL (70-99) 315mg/dL (70-99) Test 09/30/16 20:27 10/01/16 05:00 Glucose (Fingerstick) 309mg/dL (70-99) White Blood Count 6.1x10^3/uL (4.0-11.0) Red Blood Count 3.70x10^6/uL (4.30-5.70) Hemoglobin 12.1g/dL (13.0-17.5) Hematocrit 36.8% (39.0-53.0) Mean Corpuscular Volume 99fL (79-100) Mean Corpuscular Hemoglobin 33pg (25-35) Mean Corpuscular Hemoglobin Concent 33g/dL (31-37) Red Cell Distribution Width 13.7% (11.5-14.5) Platelet Count 105x10^3/uL (140-400) Neutrophils (%) (Auto) 60% (31-73) Lymphocytes (%) (Auto) 32% (24-48) Monocytes (%) (Auto) 8% (0-9) Eosinophils (%) (Auto) 0% (0-3) Basophils (%) (Auto) 1% (0-3) Neutrophils # (Auto) 3.6x10^3uL (1.8-7.7) Lymphocytes # (Auto) 1.9x10^3/uL (1.0-4.8) Monocytes # (Auto) 0.5x10^3/uL (0.0-1.1) Eosinophils # (Auto) 0.0x10^3/uL (0.0-0.7) Basophils # (Auto) 0.0x10^3/uL (0.0-0.2) Sodium Level 141mmol/L (136-145) Potassium Level 3.9mmol/L (3.5-5.1) Chloride Level 102mmol/L (98-107) Carbon Dioxide Level 34mmol/L (21-32) Anion Gap 5 (6-14) Blood Urea Nitrogen 20mg/dL (8-26) Creatinine 1.3mg/dL (0.7-1.3) Estimated GFR (Cockcroft-Gault) 56.5 BUN/Creatinine Ratio 15 (6-20) Glucose Level 237mg/dL (70-99) Calcium Level 8.7mg/dL (8.5-10.1) Magnesium Level 1.9mg/dL (1.8-2.4) Total Bilirubin 0.5mg/dL (0.2-1.0) Aspartate Amino Transf (AST/SGOT) 19U/L (15-37) Alanine Aminotransferase (ALT/SGPT) 16U/L (16-63) Alkaline Phosphatase 71U/L (46-116) Total Protein 6.8g/dL (6.4-8.2) Albumin 2.8g/dL (3.4-5.0) Albumin/Globulin Ratio 0.7 (1.0-1.7) Medications Medications Medications reviewed and reconciled for discharge. Brief hospital course Brief hospital course This 61 year old male who presented with acute on chronic systolic CHF was admitted. The following is a summary of his treatment a/c CHF Lasix 40mg IV after admit, repeat this AM 09/30 IO daily wt Admit 156 10/01 148 cardiology consult gentle diuresis, becomes hypotensive with daily dose-may need Lasix 20mg MWF and prn. HTN malignant improved with respiratory failure treatment mild EXCOPD nebulizer treatment Prednisone 50mg x 1 ED monitor, no further steroids ?AB -symptoms not support, DC levaquin DM II does not follow ADA diet, change to regular cardiac diet monitor hypoglycemia-h/o seizures in past FSBS/SSI Home insulin steroid induced hyperglycemia BS 103-315 L shoulder pain consult Dr. Cameron h/o L SCV stent x2 and PTCA in past, source of pain? 25% restenosis per cardiac note f/u OP Dr. Cameron DVT/GI prophylaxis SCD/CHERYLE PPI For more details regarding the past history, family history, social history, surgical history and other details, please refer to History and Physical. His CXR is pending, if pulmonary edema clear, will plan to DC home with Lasix 20mg MWF. Please see DC orders. F/U Dr. Lemons on Monday. Subjective breathing better. Objective no distress Vitals Vital Signs Date Time Temp Pulse Resp B/P Pulse Ox O2 Delivery O2 Flow Rate FiO2 10/01/16 03:10 98.1 77 16 142/76 97 Room Air 98.1 09/30/16 19:36 4.0 Physical Exam General appearance - alert,chronically ill appearing, and in no distress Mental Status - alert, oriented to person, place, and time, affect appropriate to mood Head - normal Chest - clear to auscultation, no wheezes, rales or rhonchi, symmetric air entry Heart - S1 and S2 normal Abdomen - soft, nontender, nondistended, no masses or organomegaly Neurological -no acute focal neurological deficit noted Musculoskeletal - no muscular tenderness noted Extremities - no pedal edema Skin - warm and dry Medications Medications reviewed. Allergy Allergies Coded Allergies Type Severity Reaction Last Updated Verified codeine Allergy Intermediate 12/15/14 Yes Follow up Monday Disposition: Home Comments Discharge Management - 35 minutes. For other details please refer to discharge instructions SANDRA OSBORNE APRN Oct 01, 2016 07:25
[2016-10-01 07:26] VITALS: BP 130/76
--- NOTE | 2016-10-01 07:27 | DISCH ---
DISCHARGE INSTRUCTIONS Condition on Discharge Condition on Discharge: Stable Activity After Discharge Activity Instructions for Disc: Activity as tolerated Diet after Discharge Diet after Discharge: Cardiac Checks after Discharge Checks after discharge: Check blood sugar, ac/hs, Weigh Yourself Daily Contacting the [facility] after DC Call your doctor for: Concerns you may have Follow-Up Follow up with: Dr. Lemons on Monday Follow Up With: Dr. Bethea per his instructions/ per his instructions SANDRA OSBORNE APRN Oct 01, 2016 07:27
[2016-10-01] MEDS ORDERED: FURO-69 PO (07:28)
[2016-10-01] MEDS ORDERED: CARVEDILOL 3.125 MG TABLET PO SCH (08:00)
--- NOTE | 2016-10-01 08:07 | RAD ---
Portable chest, 10/01/2016: History: Congestive heart failure Comparison is made to a study from 09/29/2016. A left-sided transvenous pacemaker remains in place. There has been a previous median sternotomy. A vascular stent is projected over the upper mediastinum on the left. The heart is mildly enlarged. There are prominent interstitial opacities in the lungs, although improved since the previous study. The underlying pulmonary vascularity is better defined. No pulmonary consolidation is seen. There is no evidence of pleural fluid. IMPRESSION: Improving interstitial pulmonary edema due to congestive heart failure.
[2016-10-01] MEDS: METOCLOPRAMIDE 5 MG TABLET PO SCH (08:21)
[2016-10-01] MEDS: CLOPIDOGREL BISULFATE 75 MG TABLET PO SCH (08:21)
[2016-10-01] MEDS: PANTOPRAZOLE 40 MG TABLET. PO SCH (08:22)
[2016-10-01] MEDS: ISOSORBIDE MONONITRATE ER 30 MG TAB.ER.24H PO SCH (08:22)
[2016-10-01] MEDS: SERTRALINE 50 MG TABLET. PO SCH (08:22)
[2016-10-01] MEDS: ASPIRIN 81 MG TAB.CHEW PO SCH (08:22)
[2016-10-01] MEDS: NICOTINE 14MG PATCH. TD SCH (08:23)
[2016-10-01] MEDS: INSULIN ASPART 300 UNITS/3 ML INSULN.PEN SQ SCH ×2 (08:27→11:54)
[2016-10-01] MEDS ORDERED: FUROSEMIDE 40 MG TABLET PO SCH (09:00)
[2016-10-01 10:23] VITALS: BP 119/74
--- NOTE | 2016-10-01 12:19 | PDOC ---
PROGRESS NOTES Subjective Subjective He had no new complaints. Objective Objective Vital Signs Date Time Temp Pulse Resp B/P Pulse Ox O2 Delivery O2 Flow Rate FiO2 10/01/16 11:18 Room Air 10/01/16 10:23 97.8 68 18 119/74 98 97.8 09/30/16 19:36 4.0 Intake and Output 10/01/16 07:00 Intake Total 560 ml Output Total 1200 ml Balance -640 ml Intake Oral 560 ml Output Urine Total 1200 ml Physical Exam Physical Exam He is supine in bed and had pain free ROM of his shoulders. Assessment Assessment Problems Medical Problems: (1) CHF exacerbation Status: Acute (2) COPD exacerbation Status: Acute (3) Respiratory failure Status: Acute Plan Plan of Care I have again reviewed with him home exercises and to consider trigger point injections to infraspinatus muscles on out patient basis if his shoulder area pain persists. Comment Review of Relevant I have reviewed the following items mellissa (where applicable) has been applied. Labs Laboratory Tests Test 09/29/16 17:35 09/29/16 18:00 09/29/16 18:30 09/29/16 21:46 White Blood Count 10.1x10^3/uL (4.0-11.0) Red Blood Count 4.23x10^6/uL (4.30-5.70) Hemoglobin 14.2g/dL (13.0-17.5) Hematocrit 43.0% (39.0-53.0) Mean Corpuscular Volume 102fL (79-100) Mean Corpuscular Hemoglobin 34pg (25-35) Mean Corpuscular Hemoglobin Concent 33g/dL (31-37) Red Cell Distribution Width 14.0% (11.5-14.5) Platelet Count 147x10^3/uL (140-400) Neutrophils (%) (Auto) 53% (31-73) Lymphocytes (%) (Auto) 38% (24-48) Monocytes (%) (Auto) 6% (0-9) Eosinophils (%) (Auto) 2% (0-3) Basophils (%) (Auto) 1% (0-3) Neutrophils # (Auto) 5.3x10^3uL (1.8-7.7) Lymphocytes # (Auto) 3.8x10^3/uL (1.0-4.8) Monocytes # (Auto) 0.6x10^3/uL (0.0-1.1) Eosinophils # (Auto) 0.2x10^3/uL (0.0-0.7) Basophils # (Auto) 0.1x10^3/uL (0.0-0.2) Platelet Estimate Adequate (ADEQUATE) Giant Platelets Few Sodium Level 142mmol/L (136-145) Potassium Level 4.7mmol/L (3.5-5.1) Chloride Level 105mmol/L (98-107) Carbon Dioxide Level 26mmol/L (21-32) Anion Gap 11 (6-14) Blood Urea Nitrogen 13mg/dL (8-26) Creatinine 1.1mg/dL (0.7-1.3) Estimated GFR (Cockcroft-Gault) 68.5 Glucose Level 79mg/dL (70-99) Calcium Level 8.7mg/dL (8.5-10.1) Magnesium Level 2.1mg/dL (1.8-2.4) Troponin I Quantitative 0.024ng/mL (0.000-0.055) UV-Nyj-R-Type Natriuretic Peptide 15612ul/mL (0-124) Prothrombin Time 12.6SEC (11.7-14.0) Prothromb Time International Ratio 1.0 (0.8-1.1) Influenza Type A Antigen Negative (NEGATIVE) Influenza Type B Antigen Negative (NEGATIVE) Glucose (Fingerstick) 50mg/dL (70-99) Test 09/30/16 05:00 09/30/16 08:16 09/30/16 12:00 09/30/16 17:07 White Blood Count 7.0x10^3/uL (4.0-11.0) Red Blood Count 3.71x10^6/uL (4.30-5.70) Hemoglobin 12.2g/dL (13.0-17.5) Hematocrit 37.9% (39.0-53.0) Mean Corpuscular Volume 102fL (79-100) Mean Corpuscular Hemoglobin 33pg (25-35) Mean Corpuscular Hemoglobin Concent 32g/dL (31-37) Red Cell Distribution Width 13.8% (11.5-14.5) Platelet Count 108x10^3/uL (140-400) Neutrophils (%) (Auto) 92% (31-73) Lymphocytes (%) (Auto) 7% (24-48) Monocytes (%) (Auto) 1% (0-9) Eosinophils (%) (Auto) 0% (0-3) Basophils (%) (Auto) 0% (0-3) Neutrophils # (Auto) 6.5x10^3uL (1.8-7.7) Lymphocytes # (Auto) 0.5x10^3/uL (1.0-4.8) Monocytes # (Auto) 0.1x10^3/uL (0.0-1.1) Eosinophils # (Auto) 0.0x10^3/uL (0.0-0.7) Basophils # (Auto) 0.0x10^3/uL (0.0-0.2) Segmented Neutrophils % 95% (35-66) Lymphocytes % 5% (24-48) Platelet Estimate Adequate (ADEQUATE) Large Platelets Present Sodium Level 141mmol/L (136-145) Potassium Level 4.2mmol/L (3.5-5.1) Chloride Level 103mmol/L (98-107) Carbon Dioxide Level 31mmol/L (21-32) Anion Gap 7 (6-14) Blood Urea Nitrogen 13mg/dL (8-26) Creatinine 1.3mg/dL (0.7-1.3) Estimated GFR (Cockcroft-Gault) 56.5 Glucose Level 54mg/dL (70-99) Calcium Level 8.9mg/dL (8.5-10.1) Magnesium Level 1.9mg/dL (1.8-2.4) Glucose (Fingerstick) 98mg/dL (70-99) 103mg/dL (70-99) 315mg/dL (70-99) Test 09/30/16 20:27 10/01/16 05:00 10/01/16 08:03 10/01/16 11:12 Glucose (Fingerstick) 309mg/dL (70-99) 209mg/dL (70-99) 170mg/dL (70-99) White Blood Count 6.1x10^3/uL (4.0-11.0) Red Blood Count 3.70x10^6/uL (4.30-5.70) Hemoglobin 12.1g/dL (13.0-17.5) Hematocrit 36.8% (39.0-53.0) Mean Corpuscular Volume 99fL (79-100) Mean Corpuscular Hemoglobin 33pg (25-35) Mean Corpuscular Hemoglobin Concent 33g/dL (31-37) Red Cell Distribution Width 13.7% (11.5-14.5) Platelet Count 105x10^3/uL (140-400) Neutrophils (%) (Auto) 60% (31-73) Lymphocytes (%) (Auto) 32% (24-48) Monocytes (%) (Auto) 8% (0-9) Eosinophils (%) (Auto) 0% (0-3) Basophils (%) (Auto) 1% (0-3) Neutrophils # (Auto) 3.6x10^3uL (1.8-7.7) Lymphocytes # (Auto) 1.9x10^3/uL (1.0-4.8) Monocytes # (Auto) 0.5x10^3/uL (0.0-1.1) Eosinophils # (Auto) 0.0x10^3/uL (0.0-0.7) Basophils # (Auto) 0.0x10^3/uL (0.0-0.2) Sodium Level 141mmol/L (136-145) Potassium Level 3.9mmol/L (3.5-5.1) Chloride Level 102mmol/L (98-107) Carbon Dioxide Level 34mmol/L (21-32) Anion Gap 5 (6-14) Blood Urea Nitrogen 20mg/dL (8-26) Creatinine 1.3mg/dL (0.7-1.3) Estimated GFR (Cockcroft-Gault) 56.5 BUN/Creatinine Ratio 15 (6-20) Glucose Level 237mg/dL (70-99) Calcium Level 8.7mg/dL (8.5-10.1) Magnesium Level 1.9mg/dL (1.8-2.4) Total Bilirubin 0.5mg/dL (0.2-1.0) Aspartate Amino Transf (AST/SGOT) 19U/L (15-37) Alanine Aminotransferase (ALT/SGPT) 16U/L (16-63) Alkaline Phosphatase 71U/L (46-116) Total Protein 6.8g/dL (6.4-8.2) Albumin 2.8g/dL (3.4-5.0) Albumin/Globulin Ratio 0.7 (1.0-1.7) Laboratory Tests Test 09/30/16 17:07 09/30/16 20:27 10/01/16 05:00 10/01/16 08:03 Glucose (Fingerstick) 315mg/dL (70-99) 309mg/dL (70-99) 209mg/dL (70-99) White Blood Count 6.1x10^3/uL (4.0-11.0) Red Blood Count 3.70x10^6/uL (4.30-5.70) Hemoglobin 12.1g/dL (13.0-17.5) Hematocrit 36.8% (39.0-53.0) Mean Corpuscular Volume 99fL (79-100) Mean Corpuscular Hemoglobin 33pg (25-35) Mean Corpuscular Hemoglobin Concent 33g/dL (31-37) Red Cell Distribution Width 13.7% (11.5-14.5) Platelet Count 105x10^3/uL (140-400) Neutrophils (%) (Auto) 60% (31-73) Lymphocytes (%) (Auto) 32% (24-48) Monocytes (%) (Auto) 8% (0-9) Eosinophils (%) (Auto) 0% (0-3) Basophils (%) (Auto) 1% (0-3) Neutrophils # (Auto) 3.6x10^3uL (1.8-7.7) Lymphocytes # (Auto) 1.9x10^3/uL (1.0-4.8) Monocytes # (Auto) 0.5x10^3/uL (0.0-1.1) Eosinophils # (Auto) 0.0x10^3/uL (0.0-0.7) Basophils # (Auto) 0.0x10^3/uL (0.0-0.2) Sodium Level 141mmol/L (136-145) Potassium Level 3.9mmol/L (3.5-5.1) Chloride Level 102mmol/L (98-107) Carbon Dioxide Level 34mmol/L (21-32) Anion Gap 5 (6-14) Blood Urea Nitrogen 20mg/dL (8-26) Creatinine 1.3mg/dL (0.7-1.3) Estimated GFR (Cockcroft-Gault) 56.5 BUN/Creatinine Ratio 15 (6-20) Glucose Level 237mg/dL (70-99) Calcium Level 8.7mg/dL (8.5-10.1) Magnesium Level 1.9mg/dL (1.8-2.4) Total Bilirubin 0.5mg/dL (0.2-1.0) Aspartate Amino Transf (AST/SGOT) 19U/L (15-37) Alanine Aminotransferase (ALT/SGPT) 16U/L (16-63) Alkaline Phosphatase 71U/L (46-116) Total Protein 6.8g/dL (6.4-8.2) Albumin 2.8g/dL (3.4-5.0) Albumin/Globulin Ratio 0.7 (1.0-1.7) Test 10/01/16 11:12 Glucose (Fingerstick) 170mg/dL (70-99) Medications Current Medications Nitroglycerin/ Dextrose (Nitroglycerin Drip) 250 ml @ 3 mls/hr 1X ONCE IV Last administered on 09/29/16 17:41; Start 09/29/16 at 17:30; Stop 09/29/16 at 18:01; Status DC Morphine Sulfate 4 mg PRN Q15MIN PRN IV/SQ PAIN GREATER THAN 3/10 Last administered on 09/29/16 17:40; Start 09/29/16 at 17:30; Stop 09/30/16 at 11:04 ; Status DC Albuterol/ Ipratropium 3 ml 3 ml 1X ONCE NEB Last administered on 09/29/16 17 :48; Start 09/29/16 at 17:30; Stop 09/29/16 at 17:34; Status DC Nitroglycerin/ Dextrose (Nitroglycerin Drip) 250 ml @ 0 mls/hr 1X ONCE IV Last administered on 09/29/16 17:56; Start 09/29/16 at 17:45; Stop 09/29/16 at 17:46; Status DC Nitroglycerin (Nitrostat) 0.4 mg PRN Q5MIN PRN SL CHEST PAIN Last administered on 09/29/16 17:36; Start 09/29/16 at 18:00 Prednisone (Prednisone) 60 mg 1X ONCE PO Last administered on 09/29/16 18:29 ; Start 09/29/16 at 18:30; Stop 09/29/16 at 18:31; Status DC Ondansetron HCl (Zofran) 4 mg PRN Q8HRS PRN IV NAUSEA/VOMITING; Start 09/29/16 at 18:45; Stop 09/30/16 at 18:44; Status DC Morphine Sulfate 4 mg PRN Q2HR PRN IV PAIN; Start 09/29/16 at 18:45; Stop 09/30 at 18:30; Status DC Acetaminophen (Tylenol) 650 mg PRN Q4HRS PRN PO FEVER; Start 09/29/16 at 18:45 ; Stop 09/30/16 at 18:44; Status DC Albuterol/ Ipratropium (Duoneb) 3 ml RTQID NEB Last administered on 09/29/16 21:43; Start 09/29/16 at 20:00; Stop 09/30/16 at 08:00; Status DC Levofloxacin/ Dextrose 1 each 1 each PRN DAILY PRN MC SEE COMMENTS; Start 09/29 at 18:45; Stop 09/30/16 at 11:04; Status DC Levofloxacin/ Dextrose (LEVAQUIN 750mg PREMIX) 150 ml @ 100 mls/hr Q24H IV Last administered on 09/29/16 19:56; Start 09/29/16 at 19:00; Stop 09/30/16 at 09:48; Status DC Furosemide (Lasix) 40 mg 1X ONCE IVP Last administered on 09/29/16 22:10; Start 09/29/16 at 22:00; Stop 09/29/16 at 22:01; Status DC Pantoprazole Sodium (Protonix) 40 mg DAILYAC PO Last administered on 10/01/16 08:22; Start 09/30/16 at 07:30 Insulin Detemir (Levemir) 20 units QHS SQ Last administered on 09/30/16 21:06 ; Start 09/29/16 at 22:00 Insulin Aspart (Novolog) 0-5 UNITS TIDWMEALS SQ Last administered on 10/01/16 11:54; Start 09/30/16 at 08:00 Dextrose 12.5 gm PRN Q15MIN PRN IV SEE COMMENTS Last administered on 09/30/16 06:14; Start 09/29/16 at 21:45 Carvedilol (Coreg) 6.25 mg BIDWMEALS PO Last administered on 09/30/16 17:18; Start 09/30/16 at 08:00; Stop 09/30/16 at 18:28; Status DC Clopidogrel Bisulfate (Plavix) 75 mg DAILY PO Last administered on 10/01/16 08 :21; Start 09/30/16 at 09:00 Gabapentin (Neurontin) 300 mg QHS PO Last administered on 09/30/16 21:03; Start 09/29/16 at 22:15 Metoclopramide HCl (Reglan) 5 mg TID PO Last administered on 10/01/16 08:21; Start 09/29/16 at 22:15 Nicotine (Nicoderm Cq 14mg) 1 patch DAILY TD ; Start 09/30/16 at 09:00 Oxycodone HCl (Roxicodone) 5 mg PRN Q6HRS PRN PO PAIN; Start 09/29/16 at 22:00 Simvastatin (Zocor) 40 mg HS PO Last administered on 09/30/16 21:03; Start at 22:15 Sertraline HCl (Zoloft) 100 mg DAILY PO ANTI-DEPRESSANT Last administered on 08:22; Start 09/30/16 at 09:00 Aspirin (Children'S Aspirin) 81 mg DAILYWBKFT PO Last administered on 08:22; Start 09/30/16 at 08:00 Isosorbide Mononitrate (Imdur) 30 mg DAILY PO Last administered on 10/01/16 08 :22; Start 09/30/16 at 09:00 Albuterol/ Ipratropium (Duoneb) 3 ml RTQID NEB Last administered on 10/01/16 11:17; Start 09/30/16 at 08:00 Furosemide (Lasix) 40 mg 1X ONCE IVP Last administered on 09/30/16 08:24; Start 09/30/16 at 08:00; Stop 09/30/16 at 08:01; Status DC Carvedilol (Coreg) 3.125 mg BIDWMEALS PO Last administered on 10/01/16 08:22; Start 10/01/16 at 08:00 Furosemide (Lasix) 40 mg DAILY PO Last administered on 10/01/16 08:21; Start 10/01/16 at 09:00 Hydralazine HCl (Apresoline) 10 mg PRN Q4HRS PRN IVP ELEVATED BP, SEE COMMENTS ; Start 09/30/16 at 18:30 Morphine Sulfate 2 mg PRN Q2HR PRN IV PAIN; Start 09/30/16 at 18:30 Active Scripts Active Lasix (Furosemide) 20 Mg Tablet 1 Tab PO QMWF Carvedilol 3.125 Mg Tablet 3.125 Mg PO BIDWMEALS Levemir Flextouch (Insulin Detemir) 300 Units/3 Ml Insuln.pen 26 Units SQ DAILY 30 Days Novolog Flexpen (Insulin Aspart) 300 Units/3 Ml Insuln.pen 8 Units SQ TIDAC 30 Days [Aspirin] 81 MG Tablet. 81 Mg PO DAILYWBKFT Reported Plavix (Clopidogrel Bisulfate) 75 Mg Tablet 75 Mg PO DAILY Zoloft (Sertraline Hcl) 100 Mg Tablet 100 Mg PO DAILY Reglan (Metoclopramide Hcl) 5 Mg Tablet 5 Mg PO TID Simvastatin 40 Mg Tablet 40 Mg PO HS Gabapentin 300 Mg Capsule 300 Mg PO QHS Oxycodone Hcl 5 Mg Tablet 5 Mg PO PRN Q6HRS PRN Vitals/I & O Vital Sign - Last 24 Hours 09/30/16 09/30/16 09/30/16 09/30/16 15:00 15:28 17:18 19:33 Temp 97.6 97.7 97.6 97.7 Pulse 70 72 70 Resp 18 16 B/P 104/53 100/61 112/54 Pulse Ox 94 94 O2 Delivery Room Air Room Air Room Air 09/30/16 09/30/16 09/30/16 10/01/16 19:36 20:12 22:36 03:10 Temp 98.3 98.1 98.3 98.1 Pulse 63 77 Resp 16 16 B/P 101/47 142/76 Pulse Ox 95 95 97 O2 Delivery Nasal Cannula Room Air Room Air Room Air O2 Flow Rate 4.0 10/01/16 10/01/16 10/01/16 10/01/16 07:24 07:26 08:00 08:22 Temp 97.4 97.4 Pulse 65 65 Resp 16 B/P 130/76 130/76 Pulse Ox 97 97 O2 Delivery Room Air Room Air Room Air 10/01/16 10/01/16 10/01/16 08:22 10:23 11:18 Temp 97.8 97.8 Pulse 65 68 Resp 18 B/P 130/76 119/74 Pulse Ox 98 O2 Delivery Room Air Room Air Intake and Output 09/30/16 09/30/16 10/01/16 15:00 23:00 07:00 Intake Total 340 ml 220 ml Output Total 500 ml 200 ml 500 ml Balance -160 ml 20 ml -500 ml EVERETTE TOM MD Oct 01, 2016 12:19
--- NOTE | 2016-10-03 09:31 | CONS ---
DATE OF CONSULTATION: 09/30/2016 I saw him at the request of Dr. Alyssa Lemons on 09/30/2016. LOCATION: He is in room 264. HISTORY OF PRESENT ILLNESS: This is a 61-year-old right-handed male known to me in the past. The patient with complaints of acute on chronic systolic congestive heart failure, difficulty getting air and admitted to the Emergency Room after he has taken 2 nitroglycerin sublingual and also additional Imdur without any help. The problem started on 09/29/2016 and he was admitted on 09/30/2016. The patient was seen in the Emergency Room, he was noted with hypertension with blood pressure being 204/127. EKG failed to reveal any acute abnormalities, mildly elevated troponin at 0.024. The patient was started on prednisone and IV antibiotics with suspected acute bronchitis and acute exacerbation of chronic obstructive pulmonary disease. The patient admits that he is feeling better. He was hospitalized in May of last year with pulmonary edema, requiring IV Lasix. At that time, he had some problems with hypotension. The patient with known coronary artery disease, myocardial infarction x 2, stent prior to coronary artery bypass graft, congestive heart failure, systolic with AICD placement in the past, hypertension, hyperlipidemia, peripheral arterial disease status post bilateral stenting and revascularization done at [facility], chronic obstructive pulmonary disease, dementia, mild short and long-term memory, seizure disorder, anemia, depression, chronic intermittent lower back pain, degenerative joint disease with flexion contracture of right knee, chronic renal insufficiency, chronic kidney disease stage 2, diabetes mellitus type 2, long-term insulin with neuropathy. HE HAS KNOWN ALLERGY TO CODEINE. The patient admitted some shoulder pain, but he denies any significant shoulder pain at present time. The patient had family history of coronary artery disease, CVA, hypertension, hyperlipidemia, and congestive heart failure with his mother. Father, end-stage lung disease from wounds received at [place] [employer]. Sister, AML remission, two or three brothers have coronary artery disease with sudden of 1 older brother, cerebrovascular accident status post coronary artery bypass graft. next to the oldest brother, third brother alive and well. He lives with sister, 45-year back history of tobacco, remote history of ethanol and illicit drugs. The patient had chest x-ray done, which revealed mild pulmonary edema, mild cardiomegaly and chronic fracture of left distal clavicle. PHYSICAL EXAMINATION: The patient on physical examination revealed a middle-aged male. He is alert, oriented to time, place, person and circumstance and follows commands appropriately, moves all 4 extremities voluntarily where he had 4+/5 grade muscle strength and deep tendon reflexes are decreased overall. He had equal perception of touch and pinprick sensation bilaterally. No significant pain on range of motion of both shoulders, minimal tenderness to palpation over infraspinatus muscles bilaterally. He had flexion contracture of his right knee and right knee extension limited by around 20 degrees. He is independent with bed mobility and transfers and up walking. He limps on his right foot to some extent secondary to flexion contracture of his right knee. His skin is intact at this time. ASSESSMENT: Posterior shoulder girdle muscle strain in a patient with known coronary artery disease, chronic obstructive pulmonary disease, hypertension, hyperlipidemia, status post coronary artery bypass graft and stenting in the past and also flexion contracture of right knee with mobility limitations. RECOMMENDATIONS: I have instructed him in a home program of physical modalities and relax stretching exercise to his posterior shoulder girdle muscles. The patient was advised to use a cane. He stopped limping and I would like to see him for a followup on an as needed basis. Dr. Lemons, I appreciate asking me to participate in care of this interesting patient. EVERETTE TOM MD DR: MARLENE/fabian JOB#: [id number] / [id number]
== END 2016-10-01 14:00 | disposition home or self-care (01) | DRG 291 ==
LOC: ER 17:18 → 1 WEST ICU 17:45 → CVICU 21:00
PROVIDERS: ADMIT Internal Medicine; ATTEND Internal Medicine
DX: I13.0 Hypertensive heart and chronic kidney disease with heart failure and stage 1 through stage 4 chronic kidney disease, or unspecified chronic kidney disease (principal); I50.23 Acute on chronic systolic (congestive) heart failure; J96.90 Respiratory failure, unspecified, unspecified whether with hypoxia or hypercapnia; J44.1 Chronic obstructive pulmonary disease with (acute) exacerbation; M84.40XA Pathological fracture, unspecified site, initial encounter for fracture; N18.2 Chronic kidney disease, stage 2 (mild); E11.40 Type 2 diabetes mellitus with diabetic neuropathy, unspecified; E11.649 Type 2 diabetes mellitus with hypoglycemia without coma; E11.22 Type 2 diabetes mellitus with diabetic chronic kidney disease; D64.9 Anemia, unspecified; E11.65 Type 2 diabetes mellitus with hyperglycemia; E78.5 Hyperlipidemia, unspecified; F03.90 Unspecified dementia, unspecified severity, without behavioral disturbance, psychotic disturbance, mood disturbance, and anxiety; F17.200 Nicotine dependence, unspecified, uncomplicated; F39 Unspecified mood [affective] disorder; G40.909 Epilepsy, unspecified, not intractable, without status epilepticus; I25.10 Atherosclerotic heart disease of native coronary artery without angina pectoris; I25.82 Chronic total occlusion of coronary artery; I73.9 Peripheral vascular disease, unspecified; K21.9 Gastro-esophageal reflux disease without esophagitis; T38.0X5A Adverse effect of glucocorticoids and synthetic analogues, initial encounter; F32.9 Major depressive disorder, single episode, unspecified; M19.90 Unspecified osteoarthritis, unspecified site; Z79.4 Long term (current) use of insulin; Z80.6 Family history of leukemia; Z82.3 Family history of stroke; Z82.49 Family history of ischemic heart disease and other diseases of the circulatory system; I25.2 Old myocardial infarction; Z83.3 Family history of diabetes mellitus; Z86.73 Personal history of transient ischemic attack (TIA), and cerebral infarction without residual deficits; Z88.5 Allergy status to narcotic agent; Z95.1 Presence of aortocoronary bypass graft; Z95.5 Presence of coronary angioplasty implant and graft; Z95.810 Presence of automatic (implantable) cardiac defibrillator; Z79.899 Other long term (current) drug therapy
CPT/HCPCS: 36415; 71010; 80048; 80053; 82947; 83735; 83880; 84484; 85007; 85027; 85610; 87804; 93005; 94250; 94640; 96365; 96375; J1815; J1940; J1956; J2270; J3490; J7042; J7512; J7620; J8597; 99291-25

== ENCOUNTER → 2017-02-09 | Outpatient (CLI) | payer OTHER ==
[2016-12-06 14:57] VITALS: BP 109/59
[~2017-02-09] MED LIST changes: +ASPI-482 PO; +ASPI325T8 PO; +CARV6.252 PO; -CLOP75TA27 PO; +CLOP75TA57 PO; +FURO-69 PO; +FURO40TA4 PO; +ISOS30TA4 PO; -LEVO500T38 PO; +LEVO500T59 PO; +Lidocaine TD; +Magnesium Oxide PO; +NITR0.4T SL; +ONDA4TAB10 SL; +OXYC10TA PO; +PANT40TA5 PO; +POTA10TA12 PO; +POTA20TA4 PO; +RANO500T2 PO; +SIMV20TA3 PO
[2017-02-09 12:32] LABS: CALCIUM 8.3 mg/dL (8.5-10.1); CREATININE 1.2 mg/dL (0.7-1.3); GFR 61.8; POTASSIUM 4.4 mmol/L (3.5-5.1)
== END | disposition home or self-care (01) ==
LOC: SPEC 12:05
PROVIDERS: ATTEND Internal Medicine
DX: I50.23 Acute on chronic systolic (congestive) heart failure (principal); E11.42 Type 2 diabetes mellitus with diabetic polyneuropathy
CPT/HCPCS: 36415; 80048

== ENCOUNTER → 2017-02-20 | Outpatient (CLI) | payer OTHER ==
[2016-12-06 14:57] VITALS: BP 109/59
[2017-02-20 15:15] LABS: CREATININE 1.2 mg/dL (0.7-1.3); GFR 61.8
== END | disposition home or self-care (01) ==
LOC: SPEC 14:42
PROVIDERS: ATTEND Internal Medicine
DX: I50.23 Acute on chronic systolic (congestive) heart failure (principal); I25.10 Atherosclerotic heart disease of native coronary artery without angina pectoris
CPT/HCPCS: 36415; 80048

== ENCOUNTER → 2017-03-01 | Outpatient (CLI) | payer OTHER ==
[2016-12-06 14:57] VITALS: BP 109/59
[2017-03-01 13:11] LABS: CALCIUM 8.6 mg/dL (8.5-10.1); GFR 76.2; POTASSIUM 4.2 mmol/L (3.5-5.1)
== END | disposition home or self-care (01) ==
LOC: SPEC 12:37
PROVIDERS: ATTEND Internal Medicine
DX: I50.23 Acute on chronic systolic (congestive) heart failure (principal); E11.42 Type 2 diabetes mellitus with diabetic polyneuropathy
CPT/HCPCS: 36415; 80048

== ENCOUNTER → 2017-03-03 | Outpatient (CLI) | payer OTHER ==
[2016-12-06 14:57] VITALS: BP 109/59
== END | disposition home or self-care (01) ==
LOC: PMGWOUND 14:56
PROVIDERS: ATTEND Preventive Medicine Undersea and Hyperbaric Medicine
DX: E11.621 Type 2 diabetes mellitus with foot ulcer (principal); L97.511 Non-pressure chronic ulcer of other part of right foot limited to breakdown of skin; E11.42 Type 2 diabetes mellitus with diabetic polyneuropathy; I25.10 Atherosclerotic heart disease of native coronary artery without angina pectoris; I11.0 Hypertensive heart disease with heart failure; I50.23 Acute on chronic systolic (congestive) heart failure; F17.210 Nicotine dependence, cigarettes, uncomplicated; Z95.1 Presence of aortocoronary bypass graft
CPT/HCPCS: 97597

== ENCOUNTER → 2017-03-10 | Outpatient (CLI) | payer OTHER ==
[2016-12-06 14:57] VITALS: BP 109/59
== END | disposition home or self-care (01) ==
LOC: PMGWOUND 09:34
PROVIDERS: ATTEND Preventive Medicine Undersea and Hyperbaric Medicine
DX: E11.621 Type 2 diabetes mellitus with foot ulcer (principal); L97.511 Non-pressure chronic ulcer of other part of right foot limited to breakdown of skin; E11.42 Type 2 diabetes mellitus with diabetic polyneuropathy; E11.51 Type 2 diabetes mellitus with diabetic peripheral angiopathy without gangrene; I11.0 Hypertensive heart disease with heart failure; I50.9 Heart failure, unspecified; I25.10 Atherosclerotic heart disease of native coronary artery without angina pectoris; J44.9 Chronic obstructive pulmonary disease, unspecified; F17.210 Nicotine dependence, cigarettes, uncomplicated; Z95.1 Presence of aortocoronary bypass graft; Z95.0 Presence of cardiac pacemaker
CPT/HCPCS: 11042

== ENCOUNTER → 2017-03-10 | Outpatient (CLI) | payer OTHER ==
[2016-12-06 14:57] VITALS: BP 109/59
--- NOTE | 2017-03-10 15:01 | RAD ---
Right foot radiograph 3 views Clinical indication: Nonhealing wound to the right foot. Comparison: None. Findings: No acute fracture or traumatic malalignment. Joint spaces are maintained. No cortical irregularity, focal osteopenia or periosteal reaction. Vascular calcifications are noted. Impression: No acute osseous abnormality or radiographic evidence to suggest osteomyelitis. If there is continued clinical concern, MRI with contrast is more sensitive.
== END | disposition home or self-care (01) ==
LOC: RAD 10:28
PROVIDERS: ATTEND Preventive Medicine Undersea and Hyperbaric Medicine
DX: S91.301A Unspecified open wound, right foot, initial encounter (principal); M25.871 Other specified joint disorders, right ankle and foot; X58.XXXA Exposure to other specified factors, initial encounter; Y93.89 Activity, other specified; Y92.89 Other specified places as the place of occurrence of the external cause; Y99.8 Other external cause status
CPT/HCPCS: 73630

== ENCOUNTER → 2017-03-15 | Outpatient (CLI) | payer OTHER ==
[2016-12-06 14:57] VITALS: BP 109/59
== END | disposition home or self-care (01) ==
LOC: PMGWOUND 10:59
PROVIDERS: ATTEND Preventive Medicine Undersea and Hyperbaric Medicine
DX: E11.621 Type 2 diabetes mellitus with foot ulcer (principal); L97.511 Non-pressure chronic ulcer of other part of right foot limited to breakdown of skin; E11.40 Type 2 diabetes mellitus with diabetic neuropathy, unspecified; I11.0 Hypertensive heart disease with heart failure; I50.9 Heart failure, unspecified; I25.10 Atherosclerotic heart disease of native coronary artery without angina pectoris; E11.51 Type 2 diabetes mellitus with diabetic peripheral angiopathy without gangrene; J44.9 Chronic obstructive pulmonary disease, unspecified; F17.210 Nicotine dependence, cigarettes, uncomplicated; Z95.1 Presence of aortocoronary bypass graft; Z95.0 Presence of cardiac pacemaker
CPT/HCPCS: 11042

== ENCOUNTER → 2017-03-22 | Outpatient (CLI) | payer OTHER ==
[2016-12-06 14:57] VITALS: BP 109/59
== END | disposition home or self-care (01) ==
LOC: PMGWOUND 08:01
PROVIDERS: ATTEND Preventive Medicine Undersea and Hyperbaric Medicine
DX: E11.621 Type 2 diabetes mellitus with foot ulcer (principal); L97.511 Non-pressure chronic ulcer of other part of right foot limited to breakdown of skin; E11.42 Type 2 diabetes mellitus with diabetic polyneuropathy; E11.51 Type 2 diabetes mellitus with diabetic peripheral angiopathy without gangrene; I11.0 Hypertensive heart disease with heart failure; I50.9 Heart failure, unspecified; I25.10 Atherosclerotic heart disease of native coronary artery without angina pectoris; J44.9 Chronic obstructive pulmonary disease, unspecified; F17.210 Nicotine dependence, cigarettes, uncomplicated; Z95.0 Presence of cardiac pacemaker; Z95.1 Presence of aortocoronary bypass graft
CPT/HCPCS: 11042; 29445

== ENCOUNTER → 2017-03-24 | Outpatient (CLI) | payer OTHER ==
[2016-12-06 14:57] VITALS: BP 109/59
== END | disposition home or self-care (01) ==
LOC: PMGWOUND 07:40
PROVIDERS: ATTEND Preventive Medicine Undersea and Hyperbaric Medicine
DX: E11.621 Type 2 diabetes mellitus with foot ulcer (principal); L97.511 Non-pressure chronic ulcer of other part of right foot limited to breakdown of skin; E11.42 Type 2 diabetes mellitus with diabetic polyneuropathy; I25.10 Atherosclerotic heart disease of native coronary artery without angina pectoris; J44.9 Chronic obstructive pulmonary disease, unspecified; I11.0 Hypertensive heart disease with heart failure; I50.23 Acute on chronic systolic (congestive) heart failure; E11.51 Type 2 diabetes mellitus with diabetic peripheral angiopathy without gangrene; F17.210 Nicotine dependence, cigarettes, uncomplicated; Z95.1 Presence of aortocoronary bypass graft; Z95.0 Presence of cardiac pacemaker
CPT/HCPCS: 29445

== ENCOUNTER → 2017-03-29 | Outpatient (CLI) | payer OTHER ==
[2016-12-06 14:57] VITALS: BP 109/59
== END | disposition home or self-care (01) ==
LOC: PMGWOUND 07:55
PROVIDERS: ATTEND Preventive Medicine Undersea and Hyperbaric Medicine
DX: E11.621 Type 2 diabetes mellitus with foot ulcer (principal); L97.511 Non-pressure chronic ulcer of other part of right foot limited to breakdown of skin; S80.811D Abrasion, right lower leg, subsequent encounter; I25.10 Atherosclerotic heart disease of native coronary artery without angina pectoris; J44.9 Chronic obstructive pulmonary disease, unspecified; I11.0 Hypertensive heart disease with heart failure; I50.23 Acute on chronic systolic (congestive) heart failure; E11.42 Type 2 diabetes mellitus with diabetic polyneuropathy; E11.51 Type 2 diabetes mellitus with diabetic peripheral angiopathy without gangrene; F17.210 Nicotine dependence, cigarettes, uncomplicated; Z95.1 Presence of aortocoronary bypass graft; Z95.0 Presence of cardiac pacemaker; X58.XXXD Exposure to other specified factors, subsequent encounter
CPT/HCPCS: 99214

== ENCOUNTER → 2017-04-05 | Outpatient (CLI) | payer OTHER ==
[2016-12-06 14:57] VITALS: BP 109/59
== END | disposition home or self-care (01) ==
LOC: PMGWOUND 07:53
PROVIDERS: ATTEND Preventive Medicine Undersea and Hyperbaric Medicine
DX: E11.621 Type 2 diabetes mellitus with foot ulcer (principal); L97.511 Non-pressure chronic ulcer of other part of right foot limited to breakdown of skin; E11.40 Type 2 diabetes mellitus with diabetic neuropathy, unspecified; Z72.0 Tobacco use; I11.0 Hypertensive heart disease with heart failure; I50.9 Heart failure, unspecified; I25.10 Atherosclerotic heart disease of native coronary artery without angina pectoris; E11.51 Type 2 diabetes mellitus with diabetic peripheral angiopathy without gangrene; J44.9 Chronic obstructive pulmonary disease, unspecified; Z95.1 Presence of aortocoronary bypass graft; Z95.0 Presence of cardiac pacemaker; F17.210 Nicotine dependence, cigarettes, uncomplicated
CPT/HCPCS: 11042; 29445

== ENCOUNTER → 2017-04-12 | Outpatient (CLI) | payer OTHER ==
[2016-12-06 14:57] VITALS: BP 109/59
[~2017-04-12] MED LIST changes: -OXYC5TAB PO; +OXYC5TAB95 PO
== END | disposition home or self-care (01) ==
LOC: PMGWOUND 08:06
PROVIDERS: ATTEND Preventive Medicine Undersea and Hyperbaric Medicine
DX: E11.621 Type 2 diabetes mellitus with foot ulcer (principal); L97.511 Non-pressure chronic ulcer of other part of right foot limited to breakdown of skin; E11.42 Type 2 diabetes mellitus with diabetic polyneuropathy; S80.811D Abrasion, right lower leg, subsequent encounter; I25.10 Atherosclerotic heart disease of native coronary artery without angina pectoris; J44.9 Chronic obstructive pulmonary disease, unspecified; I11.0 Hypertensive heart disease with heart failure; I50.23 Acute on chronic systolic (congestive) heart failure; E11.51 Type 2 diabetes mellitus with diabetic peripheral angiopathy without gangrene; F17.210 Nicotine dependence, cigarettes, uncomplicated; Z95.1 Presence of aortocoronary bypass graft; Z95.0 Presence of cardiac pacemaker; X58.XXXD Exposure to other specified factors, subsequent encounter
CPT/HCPCS: 97597

== ENCOUNTER → 2017-04-19 | Outpatient (CLI) | payer OTHER ==
[2016-12-06 14:57] VITALS: BP 109/59
== END | disposition home or self-care (01) ==
LOC: PMGWOUND 08:32
PROVIDERS: ATTEND Preventive Medicine Undersea and Hyperbaric Medicine
DX: E11.621 Type 2 diabetes mellitus with foot ulcer (principal); L97.511 Non-pressure chronic ulcer of other part of right foot limited to breakdown of skin; I25.10 Atherosclerotic heart disease of native coronary artery without angina pectoris; J44.9 Chronic obstructive pulmonary disease, unspecified; E11.42 Type 2 diabetes mellitus with diabetic polyneuropathy; I11.0 Hypertensive heart disease with heart failure; I50.33 Acute on chronic diastolic (congestive) heart failure; E11.51 Type 2 diabetes mellitus with diabetic peripheral angiopathy without gangrene; F17.210 Nicotine dependence, cigarettes, uncomplicated; Z95.1 Presence of aortocoronary bypass graft; Z95.0 Presence of cardiac pacemaker
CPT/HCPCS: 97597

== ENCOUNTER → 2017-04-26 | Outpatient (CLI) | payer OTHER ==
[2016-12-06 14:57] VITALS: BP 109/59
== END | disposition home or self-care (01) ==
LOC: PMGWOUND 08:29
PROVIDERS: ATTEND Preventive Medicine Undersea and Hyperbaric Medicine
DX: E11.621 Type 2 diabetes mellitus with foot ulcer (principal); L97.511 Non-pressure chronic ulcer of other part of right foot limited to breakdown of skin; I25.10 Atherosclerotic heart disease of native coronary artery without angina pectoris; J44.9 Chronic obstructive pulmonary disease, unspecified; I11.0 Hypertensive heart disease with heart failure; I50.43 Acute on chronic combined systolic (congestive) and diastolic (congestive) heart failure; E11.42 Type 2 diabetes mellitus with diabetic polyneuropathy; E11.51 Type 2 diabetes mellitus with diabetic peripheral angiopathy without gangrene; F17.210 Nicotine dependence, cigarettes, uncomplicated; Z95.1 Presence of aortocoronary bypass graft; Z95.0 Presence of cardiac pacemaker
CPT/HCPCS: 97597

== ENCOUNTER → 2017-05-03 | Outpatient (CLI) | payer OTHER ==
[2016-12-06 14:57] VITALS: BP 109/59
== END | disposition home or self-care (01) ==
LOC: PMGWOUND 08:40
PROVIDERS: ATTEND Preventive Medicine Undersea and Hyperbaric Medicine
DX: E11.621 Type 2 diabetes mellitus with foot ulcer (principal); L97.511 Non-pressure chronic ulcer of other part of right foot limited to breakdown of skin; E11.51 Type 2 diabetes mellitus with diabetic peripheral angiopathy without gangrene; E11.42 Type 2 diabetes mellitus with diabetic polyneuropathy; I11.0 Hypertensive heart disease with heart failure; I50.9 Heart failure, unspecified; I25.10 Atherosclerotic heart disease of native coronary artery without angina pectoris; J44.9 Chronic obstructive pulmonary disease, unspecified; F17.210 Nicotine dependence, cigarettes, uncomplicated; Z95.1 Presence of aortocoronary bypass graft; Z95.0 Presence of cardiac pacemaker
CPT/HCPCS: 11042

== ENCOUNTER → 2017-05-10 | Outpatient (CLI) | payer OTHER ==
[2016-12-06 14:57] VITALS: BP 109/59
== END ==
LOC: PMGWOUND 08:16
PROVIDERS: ATTEND Preventive Medicine Undersea and Hyperbaric Medicine
DX: E11.621 Type 2 diabetes mellitus with foot ulcer (principal); L97.511 Non-pressure chronic ulcer of other part of right foot limited to breakdown of skin; I25.10 Atherosclerotic heart disease of native coronary artery without angina pectoris; J44.9 Chronic obstructive pulmonary disease, unspecified; I11.0 Hypertensive heart disease with heart failure; E11.42 Type 2 diabetes mellitus with diabetic polyneuropathy; E11.51 Type 2 diabetes mellitus with diabetic peripheral angiopathy without gangrene; I50.43 Acute on chronic combined systolic (congestive) and diastolic (congestive) heart failure; Z95.1 Presence of aortocoronary bypass graft; Z95.0 Presence of cardiac pacemaker
CPT/HCPCS: 97597

== ENCOUNTER → 2017-05-17 | Outpatient (CLI) | payer OTHER ==
[2016-12-06 14:57] VITALS: BP 109/59
== END | disposition home or self-care (01) ==
LOC: PMGWOUND 08:23
PROVIDERS: ATTEND Preventive Medicine Undersea and Hyperbaric Medicine
DX: E11.621 Type 2 diabetes mellitus with foot ulcer (principal); L97.511 Non-pressure chronic ulcer of other part of right foot limited to breakdown of skin; E11.40 Type 2 diabetes mellitus with diabetic neuropathy, unspecified; J44.9 Chronic obstructive pulmonary disease, unspecified; E11.51 Type 2 diabetes mellitus with diabetic peripheral angiopathy without gangrene; I25.10 Atherosclerotic heart disease of native coronary artery without angina pectoris; F17.210 Nicotine dependence, cigarettes, uncomplicated; E11.42 Type 2 diabetes mellitus with diabetic polyneuropathy; I11.0 Hypertensive heart disease with heart failure; I50.9 Heart failure, unspecified; Z95.0 Presence of cardiac pacemaker; Z95.1 Presence of aortocoronary bypass graft
CPT/HCPCS: 97597

== ENCOUNTER → 2017-05-24 | Outpatient (CLI) | payer OTHER ==
[2016-12-06 14:57] VITALS: BP 109/59
== END | disposition home or self-care (01) ==
LOC: PMGWOUND 08:42
PROVIDERS: ATTEND Emergency Medicine Undersea and Hyperbaric Medicine
DX: E11.621 Type 2 diabetes mellitus with foot ulcer (principal); L97.512 Non-pressure chronic ulcer of other part of right foot with fat layer exposed; I25.10 Atherosclerotic heart disease of native coronary artery without angina pectoris; J44.9 Chronic obstructive pulmonary disease, unspecified; I11.0 Hypertensive heart disease with heart failure; I50.43 Acute on chronic combined systolic (congestive) and diastolic (congestive) heart failure; E11.42 Type 2 diabetes mellitus with diabetic polyneuropathy; E11.51 Type 2 diabetes mellitus with diabetic peripheral angiopathy without gangrene; F17.210 Nicotine dependence, cigarettes, uncomplicated; Z95.0 Presence of cardiac pacemaker; Z95.1 Presence of aortocoronary bypass graft
CPT/HCPCS: 11042

== ENCOUNTER → 2017-05-31 | Outpatient (CLI) | payer OTHER ==
[2016-12-06 14:57] VITALS: BP 109/59
--- NOTE | 2017-05-31 11:19 | RAD ---
Right foot, 3 views, 05/31/2017: History: Nonhealing ulcer There is patchy bony demineralization. No fracture or destructive bony lesion is seen. Arterial calcifications are present. There is mild subcutaneous edema. IMPRESSION: No acute bony abnormality is detected.
== END | disposition home or self-care (01) ==
LOC: PMGWOUND 08:45
PROVIDERS: ATTEND Preventive Medicine Undersea and Hyperbaric Medicine
DX: E11.621 Type 2 diabetes mellitus with foot ulcer (principal); L97.512 Non-pressure chronic ulcer of other part of right foot with fat layer exposed; I25.10 Atherosclerotic heart disease of native coronary artery without angina pectoris; J44.9 Chronic obstructive pulmonary disease, unspecified; E11.51 Type 2 diabetes mellitus with diabetic peripheral angiopathy without gangrene; I11.0 Hypertensive heart disease with heart failure; I50.43 Acute on chronic combined systolic (congestive) and diastolic (congestive) heart failure; E11.42 Type 2 diabetes mellitus with diabetic polyneuropathy; Z95.0 Presence of cardiac pacemaker; Z95.1 Presence of aortocoronary bypass graft; F17.210 Nicotine dependence, cigarettes, uncomplicated
CPT/HCPCS: 73630; 99214

== ENCOUNTER → 2017-06-07 | Outpatient (CLI) | payer OTHER ==
[2016-12-06 14:57] VITALS: BP 109/59
== END | disposition home or self-care (01) ==
LOC: PMGWOUND 08:00
PROVIDERS: ATTEND Preventive Medicine Undersea and Hyperbaric Medicine
DX: E11.621 Type 2 diabetes mellitus with foot ulcer (principal); L97.512 Non-pressure chronic ulcer of other part of right foot with fat layer exposed; I25.10 Atherosclerotic heart disease of native coronary artery without angina pectoris; I11.0 Hypertensive heart disease with heart failure; I50.43 Acute on chronic combined systolic (congestive) and diastolic (congestive) heart failure; J44.9 Chronic obstructive pulmonary disease, unspecified; E11.42 Type 2 diabetes mellitus with diabetic polyneuropathy; E11.51 Type 2 diabetes mellitus with diabetic peripheral angiopathy without gangrene; Z95.0 Presence of cardiac pacemaker; Z95.1 Presence of aortocoronary bypass graft; F17.210 Nicotine dependence, cigarettes, uncomplicated
CPT/HCPCS: 99214

== ENCOUNTER → 2017-06-21 | Outpatient (CLI) | payer OTHER ==
[2016-12-06 14:57] VITALS: BP 109/59
== END | disposition home or self-care (01) ==
LOC: PMGWOUND 07:54
PROVIDERS: ATTEND Preventive Medicine Undersea and Hyperbaric Medicine
DX: E11.621 Type 2 diabetes mellitus with foot ulcer (principal); L97.512 Non-pressure chronic ulcer of other part of right foot with fat layer exposed; I25.10 Atherosclerotic heart disease of native coronary artery without angina pectoris; J44.9 Chronic obstructive pulmonary disease, unspecified; E11.42 Type 2 diabetes mellitus with diabetic polyneuropathy; E11.51 Type 2 diabetes mellitus with diabetic peripheral angiopathy without gangrene; I11.0 Hypertensive heart disease with heart failure; I50.43 Acute on chronic combined systolic (congestive) and diastolic (congestive) heart failure; F17.210 Nicotine dependence, cigarettes, uncomplicated; Z95.1 Presence of aortocoronary bypass graft; Z95.0 Presence of cardiac pacemaker
CPT/HCPCS: 99213

== ENCOUNTER → 2017-06-28 | Outpatient (CLI) | payer OTHER ==
[2016-12-06 14:57] VITALS: BP 109/59
== END | disposition home or self-care (01) ==
LOC: PMGWOUND 07:52
PROVIDERS: ATTEND Preventive Medicine Undersea and Hyperbaric Medicine
DX: E11.621 Type 2 diabetes mellitus with foot ulcer (principal); L97.512 Non-pressure chronic ulcer of other part of right foot with fat layer exposed; I25.10 Atherosclerotic heart disease of native coronary artery without angina pectoris; J44.9 Chronic obstructive pulmonary disease, unspecified; E11.42 Type 2 diabetes mellitus with diabetic polyneuropathy; E11.51 Type 2 diabetes mellitus with diabetic peripheral angiopathy without gangrene; I11.0 Hypertensive heart disease with heart failure; I50.43 Acute on chronic combined systolic (congestive) and diastolic (congestive) heart failure; F17.210 Nicotine dependence, cigarettes, uncomplicated; Z95.1 Presence of aortocoronary bypass graft; Z95.0 Presence of cardiac pacemaker
CPT/HCPCS: 99213